=== PATIENT | female | born 1990 | race Caucasian/White ===

== ENCOUNTER 2018-12-19 04:20 | Outpatient (CLI) | payer BC, SELFPAY ==
[2018-12-19] MEDS: Albuterol HFA 18 GM 200 PUFF INH IH (16:07)
[2018-12-19] MEDS: Inhaler, Assist Device 1 EACH MC (16:07)
--- NOTE | 2018-12-21 09:05 | PFT_ITS ---
PULMONARY FUNCTION TEST REPORT DATE OF SERVICE: December 19, 2018 REQUESTING PROVIDER: Dalila Nash N.P. Spirometry shows moderately severe obstructive airways disease with significant bronchodilator response. Lung volumes show no evidence of restriction. The very low ERV may be related to underlying obesity. Diffusion capacity slightly elevated. Airways resistance elevated. IMPRESSION: Moderately severe obstructive airways disease with significant bronchodilator response. This is associated with elevated diffusion capacity and airways resistance. This constellation of findings can be seen in asthma. Clinical correlation therefore recommended. LEONEL/jessi
== END 2018-12-19 04:40 ==
PROVIDERS: PCP Nurse Practitioner; Visit Provider Nurse Practitioner
DX: J45.909 Unspecified asthma, uncomplicated (principal); R06.09 Other forms of dyspnea
CPT/HCPCS: 94060; 94150; 94726; 94729

== ENCOUNTER 2020-03-09 20:15 | Outpatient (REF) | payer BC, SELFPAY ==
[2020-03-09 18:46] LABS: HCT 40.4 % (36.0-46.0); HGB 12.7 g/dL (11.2-15.7); MCH 28.5 pg (27.0-33.0); MCHC 31.4 % (32.0-36.0); MCV 90.8 fL (80-95); MPV 13.7 fL (8.0-11.0); Platelet Count 194 10^3/uL (130-400); RBC 4.45 10^6/uL (3.93-5.22); RDW 12.4 % (11.7-14.6); RDW-SD 41.4 fL; WBC 9.31 10^3/uL (4.4-10.8)
[2020-03-09 19:24] LABS: Calculated LDL 75 mg/dL (<100); Cholesterol 132 mg/dL (<200); Glucose 109 mg/dL (74-106); HDL Cholesterol 48 mg/dL (40-60); TSH (W/Ref FT4) 0.63 uIU/mL (0.36-3.74); Triglyceride 48 mg/dL (<150)
[2020-03-09 19:34] LABS: Vitamin D 25 Total 6.9 ng/ml (30-100)
== END 2020-03-09 20:35 ==
LOC: NCHCN 20:15
PROVIDERS: PCP Nurse Practitioner; Visit Provider Nurse Practitioner
DX: Z12.31 Encounter for screening mammogram for malignant neoplasm of breast (principal); Z13.89 Encounter for screening for other disorder; R53.83 Other fatigue; Z13.1 Encounter for screening for diabetes mellitus
CPT/HCPCS: 80061; 82306; 82947; 85027; 84443

== ENCOUNTER 2022-04-11 12:10 | Outpatient (REF) | payer OTHER, SELFPAY ==
--- NOTE | 2022-04-11 11:30 | PAPFT_PTH ---
PATIENT: Corie Fall LOC: [facility] U#:[id number] AGE/SX: 31/F ROOM: RE04/11/[address]: Afua Valdes NP : 1990 BED: DIS: 04/11/2022 SPEC #: [id number] RECD: 04/11/22 13:08 STATUS: JENNIFER JEONG #: [id number] MIREYA: 04/11/22 11:[address]: Afua Valdes NP DEPT: [facility] Cytology RECD BY: Bettie Johnson ENTERED: 04/11/22 13:08 SP TYPE: PAPFT OTHR DR: Dalila Nash Tissues: 1 - CX/ENDOCX FOR PAP SMEARS Procedures: PAP THIN PREP/UVM Screening HPV DNA PROBE Comments: [id number]
== END 2022-04-11 12:11 | disposition home or self-care (01) ==
LOC: LBN 12:10
PROVIDERS: PCP Nurse Practitioner; Visit Provider Nurse Practitioner Women's Health
DX: Z12.4 Encounter for screening for malignant neoplasm of cervix (principal); Z11.51 Encounter for screening for human papillomavirus (HPV)
CPT/HCPCS: 88142; 87624

== ENCOUNTER 2023-07-11 20:25 | Observation (INO) | payer OTHER, SELFPAY ==
[2023-07-11] VITALS (21 sets, daily range): BP systolic 141; BP diastolic 86; PULSE 77; RESP 16–20; TEMP 36.7; O2SAT 94–100
[2023-07-11] MEDS: Albuterol/Ipratropium 3 ML UPD VIAL (20:36)
--- NOTE | 2023-07-11 20:41 | ED.GENADUL_ITS ---
Discharge Plan Discharge Details Chief Complaint: RespSymp Primary Care Provider: TIFFANIE MARTINS ED Provider: Kourtney Espinosa Home Meds and New Rx's Prescriptions: No Action albuterol sulfate 0.63 MG/3 ML solution for nebulization 3 ml Inhalation PRN PRN Claritin-D 24 Hour 1 EACH tablet extended release 24 hr 1 tab PO PRN PRN montelukast [Singulair] 10 MG tablet 10 mg PO DAILY albuterol sulfate [ProAir HFA] 8.5 GM HFA aerosol inhaler 2 puff Inhalation PRN PRN budesonide-formoterol [Symbicort] 160-4.5 mcg/actuation HFA aerosol inhaler 2 inh inhalation DAILY HPI General Date/Time Provider Initiated Documentation: 07/11/23 20:28 . HPI Narrative: Corie is a 32-year-old female who presents to the emergency department today accompanied by her Nisa for evaluation of viral symptoms with shortness of breath/wheeze. She reports that symptoms started with sneezing 2 nights ago. She has since developed fever, cough, congestion, wheeze, and diarrhea x 1. Today she used her albuterol in the morning and then again in the evening, she says that the morning updraft helped, but she did not have improved symptoms after the second. Chest discomfort only with cough. Denies difficulty swallowing, change in p.o. intake, abdominal pain, change in bladder function, calf redness/swelling/tenderness, history of blood clots, estrogen use. She does have a history of ICU hospitalization with intubation due to asthma, says it has been many years. She has taken prednisone for acute asthma exacerbations in the past. Denies immunocompromise, heart disease, or other chronic illness other than YOVANI and GERD. Related Data Home Medications Medication Instructions Recorded Confirmed albuterol sulfate 0.63 mg/3 mL 3 ml inhalation PRN PRN 10/11/15 07/11/23 solution for nebulization albuterol sulfate 90 mcg/actuation 2 puff inhalation PRN PRN 10/11/15 07/11/23 aerosol inhaler (ProAir HFA) loratadine-pseudoephedrine ER 10 1 tab PO PRN PRN 10/11/15 07/11/23 mg-240 mg tablet,extended [id number] (Claritin-D 24 Hour) montelukast 10 mg tablet 10 mg PO DAILY 10/11/15 07/11/23 (Singulair) budesonide-formoterol HFA 160 2 inh inhalation DAILY 07/11/23 07/11/23 mcg-4.5 mcg/actuation aerosol inhaler (Symbicort) Allergies Allergy/AdvReac Type Severity Reaction Status Date / Time cat dander Allergy Mild Wheezing Verified 07/11/23 20:32 dog dander Allergy Mild Wheezing Verified 07/11/23 20:32 seasonal Allergy Mild Wheezing Uncoded 07/11/23 20:32 General Stated Complaint: RespSymp VIJAY: 4 Review of Systems Narrative: see HPI Exam Const General: cooperative Orientation: alert and awake Resp Effort & Inspection: cough, retractions, no stridor, no tracheal deviation and uses accessory muscles Auscultation: diminished lung sounds Cardio Rate: regular rate Rhythm: regular rhythm Course Vital Signs Vital signs: Vital Signs Temperature 36.7 C 07/11/23 20:27 Pulse 77 07/11/23 20:27 Respiratory Rate 16 07/11/23 20:27 Blood Pressure 141/86 H 07/11/23 20:27 Pulse Oximetry 100 07/11/23 20:27 Temperature 36.7 C 07/11/23 20:27 Temperature Source Oral 07/11/23 20:27 Pulse 77 07/11/23 20:27 Respiratory Rate 16 07/11/23 20:27 Respiratory Effort Short of Breath 07/11/23 20:35 Respiratory Depth Normal 07/11/23 20:35 Blood Pressure 141/86 H 07/11/23 20:27 Blood Pressure Position Sitting 07/11/23 20:27 Pulse Oximetry 100 07/11/23 20:27 Oxygen Delivery Method Room Air 07/11/23 20:27 Oxygen Flow Rate 0 07/11/23 20:27 Pain Level 0 07/11/23 20:27 Medical Decision Making Corie is a 32-year-old female who presents to the emergency department today accompanied by her Nisa for evaluation of viral symptoms with shortness of breath/wheeze. She reports that symptoms started with sneezing 2 nights ago. She has since developed subjective fever, cough, congestion, wheeze, and diarrhea x 1. Today she used her albuterol in the morning and then again in the evening, she says that the morning updraft helped, but she did not have improved symptoms after the second. Chest discomfort only with cough. Denies difficulty swallowing, change in p.o. intake, abdominal pain, change in bladder function, calf redness/swelling/tenderness, history of blood clots, estrogen use. She does have a history of ICU hospitalization with intubation due to asthma, says it has been many years. She has taken prednisone for acute asthma exacerbations in the past. Denies immunocompromise, heart disease, recent surgery/immobility, or other chronic illness other than YOVANI and GERD. Physical exam remarkable for patient in mild respiratory distress with 2-3 word dyspnea. Tight lung sounds throughout, unable to elicit wheezes. Normal heart sounds. Moist mucous membranes. Clear voice. No oropharyngeal erythema or tonsillar hypertrophy/erythema/exudate. DDx includes was not limited to viral illness such as COVID-19 or flu, asthma exacerbation, seasonal allergies, pneumothorax. No red flags concerning for pneumonia at this time due to concurrent viral symptoms. PERC and Wells both negative and evaluation for risk of PE. While in the emergency department patient received DuoNeb with little improvement in symptoms. She does remain dyspneic, with 2-3 word dyspnea. She reports that lack of wheezing is unusual for her, as she usually requires multiple nebulizers due to persistent wheezing and if she does not have wheezing it usually appears after the first neb. 60 mg prednisone given. I independently interpreted the following tests: CBC reassuring. CMP notable for glucose 474 (previously 109 in 2019) and anion gap 13.8. Potassium 3.2. Urine significant for 500 glucose and trace ketones. VBG notable for respiratory alkalosis, pH 7.5 CO2 27. COVID/flu/RSV negative. Chest x-ray unremarkable, no acute infiltrates noted. This was confirmed by fever radiologist. EKG shows normal sinus rhythm, rate 84. No changes consistent with acute ischemia or hypokalemia. 2330: Corie remains short of breath. She was ambulated throughout the department, heart rate increased to 110s, no hypoxia. A second DuoNeb was ordered, though she remains short of breath, no wheezes auscultated even with forced expiration. 2345: Dr. Mcdermott is evaluating patient at this time. Handoff report given to Dr Crockett, overnight attending. Quality:SDOH Health Related Social Needs: No Data to Display PFSH All Active Problems (Updated 04/11/22 @ 11:24 by Afua Valdes NP) Vitamin D deficiency (Acute) BMI 40.0-44.9, adult (Acute) Acid reflux (Chronic) Asthma (Chronic) Medical History (Updated 04/11/22 @ 11:24 by Afua Valdes NP) Eczema Surgical History (Updated 04/11/22 @ 11:24 by Afua Valdes NP) No pertinent past surgical history Family History (Updated 04/11/22 @ 13:20 by Afua Valdes NP) Father Hyperlipidemia Hypertension Maternal Grandfather Cancer bone/jaw Hypertension Maternal Grandmother Hypertension Social History (Updated 04/11/22 @ 11:35 by Afua Valdes NP) Smoking/Tobacco Use Status: Never Smoking risk assessment performed?: Yes Alcohol Intake: never Drug use: Never Household members: spouse and other Details: 1 foster child 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 No improvement with DuoNeb or prednisone 60 mg given in ED. Chest x- ray negative. Labs remarkable for elevated glucose of 474, increased from 109 in 2020. UA shows glucose 500 with trace ketones. VBG reassuring, respiratory alkalosis with CO2 27 with pH 7.5. COVID flu/RSV negative. Oral potassium supplementation given. 1 L IV fluid given. No tachycardia or hypoxia while in the ED. Currently receiving second DuoNeb. Dr. Mcdermott to consult. Last updated by Kourtney Espinosa at 07/11/23 23:38
--- NOTE | 2023-07-11 21:15 | DI.RAD_ITS ---
Exam(s) XR CHEST 2V PA LATERAL EXAM: XR CHEST 2V PA LATERAL CLINICAL HISTORY: SOB, cough TECHNIQUE: 2D digital imaging was performed. Two views. COMPARISON: No exams were available for comparison FINDINGS: HEART: Normal size. Aorta: Not dilated. PULMONARY VASCULATURE: Normal. LUNGS: Suboptimally inflated but clear. PLEURAL SPACE: No pleural effusion or pneumothorax. BONE:Unremarkable for age. Soft tissues: Unremarkable. IMPRESSION: No acute abnormality. DATA REPOSITORY: RADIATION DOSE DELIVERED:
[2023-07-11 21:21] LABS: COVID-19 PCR Negative (Negative); Influenza A PCR Negative (Negative); Influenza B PCR Negative (Negative); RSV PCR Negative (Negative)
[2023-07-11 21:22] LABS: Source Nasopharynx
[2023-07-11] MEDS: predniSONE 20 MG TAB 60 MG PO (22:01)
[2023-07-11 22:04] LABS: Abs Immature Grans 0.03 10^3/uL (0.0-0.06); Absolute Basophil Count 0.03 10^3/uL (0.0-0.2); Absolute Eosinophil Count 0.12 10^3/uL (0.0-0.7); Absolute Lymphocyte Count 0.79 10^3/uL (1.2-3.4); Absolute Monocyte Count 0.69 10^3/uL (0.1-0.8); Absolute Neutrophil Count 3.69 10^3/uL (1.2-6.7); Basophils % 0.6; Eosinophils % 2.2; HCT 41.4 % (36.0-46.0); HGB 13.6 g/dL (11.2-15.7); Immature Grans % 0.6; Lymphocytes % 14.8; MCHC 32.9 % (32.0-36.0); MCV 88 fL (80-95); Monocytes % 12.9; Neutrophils % 68.9; Platelet Count 166 10^3/uL (130-400); RBC 4.69 10^6/uL (3.93-5.22); RDW 12.1 % (11.7-14.6); WBC 5.35 10^3/uL (4.4-10.8)
[2023-07-11 22:16] LABS: Anion Gap 13.8 mmol/L (3-11); BUN 11 mg/dL (7-18); CO2 21.2 mmol/L (21.0-32.0); CREATININE 0.9 mg/dL (0.55-1.02); Chloride 102 mmol/L (98-107); Estimated GFR 86.57 (mL/min/1.73m2); Glucose 474 mg/dL (74-106); Potassium 3.2 mmol/L (3.5-5.1); Sodium 137 mmol/L (136-145)
--- NOTE | 2023-07-11 22:39 | DI.VRAD_ITS ---
PROCEDURE INFORMATION: Exam: XR Chest Exam date and time: 07/11/2023 10:00 PM Age: 32 years old Clinical indication: Cough and shortness of breath; Patient HX: Cough, SOB TECHNIQUE: Imaging protocol: Radiologic exam of the chest. Views: 2 views. COMPARISON: No relevant prior studies available. FINDINGS: Lungs: No pulmonary consolidation is seen. Pleural spaces: No pleural effusion or pneumothorax is demonstrated. Heart/Mediastinum: The heart appears normal in size. Bones/joints: The visualized bony structures appear intact. IMPRESSION: No active disease is seen in the chest. Dictated and Authenticated by: Amado Hope MD. Ordering:AGUEDA Oconnell MD
[2023-07-11 22:44] LABS: Bilirubin Negative (Negative); Blood Negative (Negative); Clarity Clear (Clear); Glucose 500 mg/dL (Negative); Ketones Trace mg/dL (Negative); Leukocyte Esterase Negative (Negative); Nitrite Negative (Negative); Urobilinogen 0.2 mg/dL (Up to 0.2)
--- NOTE | 2023-07-11 22:45 | RT.EKG_ITS ---
APPROVED REPORT Exam: Resting ECG Reason for Exam: hypok Patient Location: E HR:84 bpm ECG Measurements Heart Rate 84 AXIS TN 142 P 13 QRSd 92 QRS 10 QT 386 T -2 QTc 456 Conclusion Sinus rhythm at a rate of 84 without acute ischemic change. There is no old EKG available for compari son.
[2023-07-11 22:46] LABS: BE (Venous) -2 mmol/L (-2-3); HCO3 (Venous) 21 mmol/L (23-28); O2 Sat (Venous) 94 %; TCO2 (Venous) 19 mmol/L (24-29); pCO2 (Venous) 27 mmHg (41-51); pO2 (Venous) 63 mmHg
[2023-07-11] MEDS: Normal Saline 1,000 ML 1000 ML IV (22:47)
[2023-07-11] MEDS: Potassium Bicarbonate/Cit AC 25 MEQ TABLET.EFF 50 MEQ PO (23:12)
[2023-07-11] MEDS: Albuterol/Ipratropium 3 ML UPD VIAL UPD (23:31)
[2023-07-11 23:36] LABS: Troponin I < 50 ng/L (< or =60)
--- NOTE | 2023-07-11 23:59 | W.PM.HP.N ---
Date of service: 07/12/23 Time of Service: 00:00 Assessment and Plan Assessment and plan (1) Asthma: Status: Chronic Assessment and plan: Asthma, precipitatd by URI. Responding well, will continue nebs and steroids. The complicating factor is new onset DM (presumably type 2, in setting of obesity, though I do note very slight ketonuria and small AG). Given new diagnosis, significant level of hyperglycemia; and furthermore likely exacerbating effect of steroids, I think it best to begin expedited treatment in a supervised setting. 1. Asthma: nebs, steroids 2. DM: sliding scale insulin, begin Metformin in AM, consult dietary Full Code History of Present Illness History of Present Illness Chief Complaint: SOB Narrative: 32 female with asthma --1-2 days of runny nose, dry cough, post nasl drip, SOB. Home nebs and inhaler with little effect so came to ER for evaluation. In ER initial evaluation of note for 2-3 word dyspnea, afebrile,diminished breath sounds; white count 5.3; K 3.2; glucose 474 with AG 13.8 and trace urinary ketones; ph 7.50; and negative CXR. Patient given duonebs and 60 Prednisone. States her breathing is feeling more comfortable though not yet normal. I was asked to evaluate for admission. 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 [employer] Sexually active: Yes Do you think of yourself as: lesbian/lee/homosexual Current gender identity: female Do you feel safe at home: Yes Do you feel safe in your relationship?: Yes History History 0 Para Hx # Term Pregnancies Multiple births Hx # Pregnancies Ectopic pregnancies AB induced Hx Number of Living Children AB spontaneous Meds Allergies and Home Medications Allergies Allergy/AdvReac Type Severity Reaction Status Date / Time cat dander Allergy Mild Wheezing Verified 07/11/23 20:32 dog dander Allergy Mild Wheezing Verified 07/11/23 20:32 seasonal Allergy Mild Wheezing Uncoded 07/11/23 20:32 Home Medications Medication Instructions Recorded Confirmed Type albuterol sulfate 0.63 mg/3 mL 3 ml inhalation PRN PRN 10/11/15 07/11/23 History solution for nebulization albuterol sulfate 90 mcg/actuation 2 puff inhalation PRN PRN 10/11/15 07/11/23 History aerosol inhaler (ProAir HFA) loratadine-pseudoephedrine ER 10 1 tab PO PRN PRN 10/11/15 07/11/23 History mg-240 mg tablet,extended [id number] (Claritin-D 24 Hour) montelukast 10 mg tablet 10 mg PO DAILY 10/11/15 07/11/23 History (Singulair) budesonide-formoterol HFA 160 2 inh inhalation DAILY 07/11/23 07/11/23 History mcg-4.5 mcg/actuation aerosol inhaler (Symbicort) Exam Narrative Exam Narrative: 141/86, 77, 36.7, 18, 99% RA. HEENT atraumatic; neck supple; lungs clear; heart RRR; abdomen soft and NT; extremities w/o edema; neuro Ox3, lucid, moves all 4s Results Labs 07/11/23 21:55 07/11/23 21:55 Labs: Laboratory Results - last 24 hr 07/11/23 07/11/23 07/11/23 20:42 21:50 21:55 WBC 5.35 RBC 4.69 Hgb 13.6 Hct 41.4 MCV 88 MCH 29.0 MCHC 32.9 RDW 12.1 Plt Count 166 MPV 13.0 H Immature Gran % 0.6 Neutrophils % 68.9 Lymphocytes % 14.8 Monocytes % 12.9 Eosinophils % 2.2 Basophils % 0.6 Nucleated RBC % 0.0 Absolute Neutrophils 3.69 Absolute Lymphocytes 0.79 L Absolute Monocytes 0.69 Absolute Eosinophils 0.12 Absolute Basophils 0.03 VBG pH VBG pCO2 VBG pO2 VBG HCO3 VBG Total CO2 VBG O2 Saturation VBG Base Excess Sodium 137 Potassium 3.2 L Chloride 102 Carbon Dioxide 21.2 Anion Gap 13.8 H BUN 11 Creatinine 0.9 Est GFR (CKD-EPI 2020) 86.57 Glucose 474 H Calcium 9.0 Troponin I Urine Color Yellow Urine Clarity Clear Urine pH 7.0 Ur Specific [place] 1.020 Urine Protein Negative Urine Ketones Trace H Urine Blood Negative Urine Nitrite Negative Urine Bilirubin Negative Urine Urobilinogen 0.2 Ur Leukocyte Esterase Negative Urine Glucose 500 H COVID-19 Source Nasopharynx SARS-CoV-2 (PCR) Negative Influenza Type A (PCR) Negative Influenza Type B (PCR) Negative RSV (PCR) Negative 07/11/23 22:43 WBC RBC Hgb Hct MCV MCH MCHC RDW Plt Count MPV Immature Gran % Neutrophils % Lymphocytes % Monocytes % Eosinophils % Basophils % Nucleated RBC % Absolute Neutrophils Absolute Lymphocytes Absolute Monocytes Absolute Eosinophils Absolute Basophils VBG pH 7.50 H VBG pCO2 27 L VBG pO2 63 VBG HCO3 21 L VBG Total CO2 19 L VBG O2 Saturation 94 VBG Base Excess -2 Sodium Potassium Chloride Carbon Dioxide Anion Gap BUN Creatinine Est GFR (CKD-EPI 2020) Glucose Calcium Troponin I < 50 Urine Color Urine Clarity Urine pH Ur Specific [place] Urine Protein Urine Ketones Urine Blood Urine Nitrite Urine Bilirubin Urine Urobilinogen Ur Leukocyte Esterase Urine Glucose COVID-19 Source SARS-CoV-2 (PCR) Influenza Type A (PCR) Influenza Type B (PCR) RSV (PCR) Last Vital Signs Temp 36.7 C 07/11/23 20:27 Pulse 77 07/11/23 20:36 Resp 18 07/11/23 20:36 BP 141/86 H 07/11/23 20:27 Pulse Ox 99 07/11/23 20:36 Time Spent Time spent with Patient: 40-54 minutes Time was spent: preparing to see the patient(eg.review tests), obtaining and/or reviewing separately otained hiistory, ordering medications,tests, procedures, referring, communicating with other health lawn care technician and indepentently interpreting results
[2023-07-12] VITALS (13 sets, daily range): BP systolic 126–145; BP diastolic 67–86; PULSE 72–94; RESP 2–18; TEMP 36.7–37.4; O2SAT 93–98
[2023-07-12] MEDS: Insulin REGULAR-Human 100 UNITS/ML UNIT 10 UNITS SC (00:42)
[2023-07-12] MEDS: Insulin Aspart 300 UNITS/3 ML PEN SC ×3 (06:10→11:48)
[2023-07-12] MEDS: Albuterol/Ipratropium 3 ML UPD VIAL UPD (06:10)
[2023-07-12 07:00] LABS: Anion Gap 11.3 mmol/L (3-11); BUN 7 mg/dL (7-18); CO2 23.7 mmol/L (21.0-32.0); CREATININE 0.8 mg/dL (0.55-1.02); Calcium 8.8 mg/dL (8.5-10.1); Chloride 103 mmol/L (98-107); Estimated GFR 99.71 (mL/min/1.73m2); Glucose 332 mg/dL (74-106); Sodium 138 mmol/L (136-145)
[2023-07-12] MEDS: metFORMIN 500 MG TAB PO (07:36)
[2023-07-12] MEDS: predniSONE 20 MG TAB 60 MG PO (07:37)
[2023-07-12] MEDS: Montelukast 10 MG TAB PO (07:44)
--- NOTE | 2023-07-12 09:48 | PDOC.CMIN ---
Date of service: 07/12/23 Care Management Initial Assmt Initial Assessment REASON FOR HOSPITALIZATION:: Asthma, DM PREVIOUS FUNCTIONAL STATUS/SOCIAL/FAMILY SUPPORTS:: Corie lives in [facility] with her Nisa. They bought a house 6 years ago and work within the local community. 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 They are also foster parents and often foster newborns who are born addicted and or have parents who have substance use history. They both met at [employer] and soon after graduation. Nisa has some family local who are supportive and involved and Corie has family in [place] where she is from. Corie is independent at baseline. CURRENT FUNCTIONAL STATUS:: Corie and Nisa were sitting up in bed during the interaction with CM. Nisa described she came in for her asthma and has a new diagnosis of diabetes. They said they had just met with the cabin furnishings installer and will follow up plan to follow up with cabin furnishings installer as needed and will to follow up with Bajlinderluizshe[facility] PCP. Corie says she felt better last night and continues to feel better even now and is eager to discharge home. ADVANCE DIRECTIVES:: KATARZYNA Weaver, Nisa Artis, Luis Fall CODE STATUS:: Full Code INSURANCE COVERAGE / FINANCIAL ISSUES:: CBA PRIMARY CARE PHYSICIAN:: TIFFANIE MARTINS NP PATIENT/FAMILY EDUCATION NEEDS:: Review discharge instructions and limitations, discussion of self care needs including Ask Me Three ANTICIPATED BARRIERS TO DISCHARGE:: None TRANSPORTATION:: Via private vehicle by family PLAN:: Corie will transport home once medically cleared via private vehicle. She will follow up with her PCP and discharge plan of care. CM will continue to follow. PFSH All Active Problems (Updated 07/12/23 @ 12:37 by Tricia Orourke NP) Hyperglycemia, unspecified (Acute) Vitamin D deficiency (Acute) BMI 40.0-44.9, adult (Acute) Acid reflux (Chronic) Asthma (Chronic) Medical History Eczema Surgical History No pertinent past surgical history Family History Father Hyperlipidemia Hypertension Maternal Grandfather Cancer bone/jaw Hypertension Maternal Grandmother Hypertension Social History Smoking/Tobacco Use Status: Never Smoking risk assessment performed?: Yes Alcohol Intake: never Drug use: Never Household members: spouse and other Details: 1 foster child Housing: house 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 [employer] Sexually active: Yes Do you think of yourself as: lesbian/lee/homosexual Current gender identity: female Do you feel safe at home: Yes Do you feel safe in your relationship?: Yes History History 0 Para Hx # Term Pregnancies Multiple births Hx # Pregnancies Ectopic pregnancies AB induced Hx Number of Living Children AB spontaneous SDOH(Care Management) Screening Will the Patient Participate in the Screening?: Yes Do you worry about having a steady place to live?: no In the past 12 months, have you had to go without electric, gas, oil or water in your home?: no Have you or anyone in your house had to go without enough food to eat?: no Has lack of transportation kept you from medical appointments or from doing things needed for daily living?: no Has anyone in your support network made you feel unsafe for any reason?: no
--- NOTE | 2023-07-12 11:45 | W.PM.DS.N ---
Date of service: 07/12/23 Time of Service: 11:45 DS: Diagnosis Discharge Diagnosis (1) Asthma: Status: Chronic Asessment and Plan: No oxygen requirements and improved after receiving steroids in the emergency department. Will continue steroid burst continue home asthma inhalers (2) Hyperglycemia, unspecified: Status: Acute Asessment and Plan: Suspect new onset diabetes mellitus type 2. A1c is pending. Has been started on metformin. Diabetes education weight loss and exercise discussed (3) New onset type 2 diabetes mellitus: Status: Suspected Asessment and Plan: A1c is pending see above will need close outpatient follow-up Discharge Plan Disposition Patient Disposition: Home Condition: Stable Discharge Details Reason For Visit: Asthma, DM Admit Date/Time: 07/12/23 00:13 Admit Provider: Chidi Mcdermott Attending Provider: Chidi Mcdermott Primary Care Provider: TIFFANIE MARTINS Hospital Course Hospital Course: This is an obese female past medical history significant for asthma who presents to the emergency department with asthma exacerbation. Will be treated with steroids. On evaluation noted to be hyperglycemic suspected new onset of diabetes mellitus type 2 it was thought to be prudent to admit her to the medical surgical unit for diabetes education and monitoring in the setting of treatment with steroids. She was not found to be in DKA. Overnight her respiratory status markedly improved. She is stable for discharge to home she will be started on metformin 500 mg daily and will follow-up with her primary care provider for further management and recommendations. Hemoglobin A1c is pending at time of discharge she was discharged to home with no services discharge discussed with Home Meds and New Rx's Prescriptions: New metformin 500 mg tablet 500 mg PO DAILY Qty: 60 0RF (DME) FreeStyle Eric 2 [place] Misc See Rx Instructions .Route Qty: 1 0RF Rx Instructions: As directed (DME) FreeStyle Eric 2 Sensor Kit See Rx Instructions .Route Qty: 1 0RF Rx Instructions: As directed Continued albuterol sulfate 0.63 MG/3 ML solution for nebulization 3 ml Inhalation PRN PRN Claritin-D 24 Hour 1 EACH tablet extended release 24 hr 1 tab PO PRN PRN montelukast [Singulair] 10 MG tablet 10 mg PO DAILY albuterol sulfate [ProAir HFA] 8.5 GM HFA aerosol inhaler 2 puff Inhalation PRN PRN budesonide-formoterol [Symbicort] 160-4.5 mcg/actuation HFA aerosol inhaler 2 inh inhalation DAILY Discharge Instructions Instructions: Type 2 Diabetes in Adults: New Diagnosis (ED), Diabetes and Nutrition (DC), Diabetes and Exercise (DC) Additional Instructions: We anticipate your blood sugars to be elevated while on your oral steroids. Continue metformin daily as prescribed. Check blood sugars before meals and bedtime and keep a record to bring to your follow-up appointment outpatient Resume your respiratory inhalers as previously scheduled and continue steroid burst for 5 days Stand Alone Forms: Nursing Discharge Form Referrals: TIFFANIE MARTINS NP [Primary Care Provider] - 07/25/23 1:30 pm Activity:: Activity as Tolerated Equipment/Supplies:: Blood Glucose Monitor Diet:: Carb Counting Discharge Orders Discharge Orders: Discharge Order (Routine); Ordered 07/12/23 Ordered By: Tricia Orourke Discharge Data Discharge Date/Time-TO BE ENTERED AT DEPARTURE: 07/12/23 14:55 DS: Summary Time Spent with Patient providing and/or coordinating discharge services: Less than 30 minutes Status at Discharge Functional status at discharge: independent ambulation Overall status at discharge: patient is back to baseline Mental Status: mental status grossly normal Speech and Movement: speech and movement normal Mood: congruent mood Affect: normal affect Quality:SDOH Health Related Social Needs: No Data to Display Exam Narrative Exam Narrative: Obese female of stated age no acute distress head is atraumatic oral mucosas moist cardiovascular regular rate and rhythm respirations even and unlabored her breath sounds are clear faint expiratory wheeze the moves all extremities skin is pink warm dry well-perfused Psych Mental Status: mental status grossly normal Speech and Movement: speech and movement normal Mood: congruent mood Affect: normal affect DS: Data Vitals/I&O Vitals and I&O: Vital Signs Temperature 36.7 C 07/12/23 07:26 Temperature Source Tympanic 07/12/23 07:26 Pulse 91 H 07/12/23 07:26 Pulse Rhythm Regular 07/12/23 10:09 Respiratory Rate 18 07/12/23 07:26 Respiratory Effort Normal, Non-Labored 07/12/23 10:09 Respiratory Depth Normal 07/12/23 10:09 Respiratory Pattern Normal 07/12/23 10:09 Blood Pressure 126/81 07/12/23 07:26 Blood Pressure Position Sitting 07/12/23 00:55 Pulse Oximetry 97 07/12/23 07:26 Oxygen Delivery Method Room Air 07/12/23 07:26 Oxygen Flow Rate 0 07/12/23 07:26 Pain Level 0 07/12/23 01:36 Intake & Output 07/11/23 07/11/23 07/12/23 11:59 23:59 11:59 Intake Total 1000 / 1000 180 / 180 Balance 1000 / 1000 180 / 180 Weight 104.326 kg Intake: IV 1000 / 1000 Oral 180 / 180 Other: Comment per pt voided x2 Data Completed and Pending Labs on day of discharge: Labs from last 24 hours 07/12/23 07/12/23 07/11/23 06:20 02:15 22:43 WBC RBC Hgb Hct MCV MCH MCHC RDW Plt Count MPV Immature Gran % Neutrophils % Lymphocytes % Monocytes % Eosinophils % Basophils % Nucleated RBC % Absolute Neutrophils Absolute Lymphocytes Absolute Monocytes Absolute Eosinophils Absolute Basophils VBG pH 7.50 H VBG pCO2 27 L VBG pO2 63 VBG HCO3 21 L VBG Total CO2 19 L VBG O2 Saturation 94 VBG Base Excess -2 Sodium 138 Potassium 4.0 Chloride 103 Carbon Dioxide 23.7 Anion Gap 11.3 H BUN 7 Creatinine 0.8 Est GFR (CKD-EPI 2020) 99.71 Glucose 332 H Calcium 8.8 Troponin I Cancelled < 50 Urine Color Urine Clarity Urine pH Ur Specific [place] Urine Protein Urine Ketones Urine Blood Urine Nitrite Urine Bilirubin Urine Urobilinogen Ur Leukocyte Esterase Urine Glucose COVID-19 Source SARS-CoV-2 (PCR) Influenza Type A (PCR) Influenza Type B (PCR) RSV (PCR) 07/11/23 07/11/23 07/11/23 21:55 21:50 20:42 WBC 5.35 RBC 4.69 Hgb 13.6 Hct 41.4 MCV 88 MCH 29.0 MCHC 32.9 RDW 12.1 Plt Count 166 MPV 13.0 H Immature Gran % 0.6 Neutrophils % 68.9 Lymphocytes % 14.8 Monocytes % 12.9 Eosinophils % 2.2 Basophils % 0.6 Nucleated RBC % 0.0 Absolute Neutrophils 3.69 Absolute Lymphocytes 0.79 L Absolute Monocytes 0.69 Absolute Eosinophils 0.12 Absolute Basophils 0.03 VBG pH VBG pCO2 VBG pO2 VBG HCO3 VBG Total CO2 VBG O2 Saturation VBG Base Excess Sodium 137 Potassium 3.2 L Chloride 102 Carbon Dioxide 21.2 Anion Gap 13.8 H BUN 11 Creatinine 0.9 Est GFR (CKD-EPI 2020) 86.57 Glucose 474 H Calcium 9.0 Troponin I Urine Color Yellow Urine Clarity Clear Urine pH 7.0 Ur Specific [place] 1.020 Urine Protein Negative Urine Ketones Trace H Urine Blood Negative Urine Nitrite Negative Urine Bilirubin Negative Urine Urobilinogen 0.2 Ur Leukocyte Esterase Negative Urine Glucose 500 H COVID-19 Source Nasopharynx SARS-CoV-2 (PCR) Negative Influenza Type A (PCR) Negative Influenza Type B (PCR) Negative RSV (PCR) Negative PFSH All Active Problems (Updated 07/13/23 @ 00:07 by LEVON POWELL) Hyperglycemia, unspecified (Acute) Vitamin D deficiency (Acute) BMI 40.0-44.9, adult (Acute) Acid reflux (Chronic) Asthma (Chronic) Medical History Eczema Surgical History No pertinent past surgical history Family History Father Hyperlipidemia Hypertension Maternal Grandfather Cancer bone/jaw Hypertension Maternal Grandmother Hypertension Social History Smoking/Tobacco Use Status: Never Smoking risk assessment performed?: Yes Alcohol Intake: never Drug use: Never Household members: spouse and other Details: 1 foster child Housing: house 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 [employer] Sexually active: Yes Do you think of yourself as: lesbian/lee/homosexual Current gender identity: female Do you feel safe at home: Yes Do you feel safe in your relationship?: Yes History History 0 Para Hx # Term Pregnancies Multiple births Hx # Pregnancies Ectopic pregnancies AB induced Hx Number of Living Children AB spontaneous Time Spent with Patient Time Spent with Patient: 45-69 minutes Time was spent: preparing to see the patient(eg.review tests), obtaining and/or reviewing separately otained hiistory, ordering medications,tests, procedures, referring, communicating with other health cardiac care nurse, indepentently interpreting results, counseling the patient and care coordination
[2023-07-12 13:49] LABS: Lab Add On Test DONE
--- NOTE | 2023-07-12 14:24 | PDOC.CMDIS ---
Date of service: 07/12/23 LACE Index Scoring Tool Questions: Length of Stay (in days): 1 Was the patient admitted via the E.D.?: Yes E.D. Visits: 0 Answers: Total Score: 4 Risk of Readmission: Low Risk Care Management Discharge Plan Reason for Hospitalization: Asthma, DM Discharge Plan: Corie will return home via private vehicle with Nisa. She will follow up with her PCP and plan for care as prescribed. No new services anticipated at this time. Patient/Family Education Needs: Review discharge instructions and discuss Ask Me [facility] Health Related Social Needs: No Data to Display
--- NOTE | 2023-07-12 14:49 | W.NUTRFU ---
Date of service: 07/12/23 Time of Service: 10:30 Nutrition Note NOTE: received routine consult for diabetes education. Pt sitting up in bed and partner is visiting with her. A1c 10.7 with very high glucose while inpatient. Gave my card for contacting for outpatient support in diabetes education. Gave Corie handout on basics of carb counting - reviewed her goal is ~200g CHO daily and translated this into 13 15gram servings per day, spread consistently over regular meals and snacks. We spent some time reviewing protein and non carb food choices to round out her plate at meals. They had no questions at this time and will follow up with PCP after discharge - has glucometer ordered. Will remain available for diabeted education referral as outpatient Time Spent in Nutritional Counseling and Treatment: 15 minutes
[2023-07-12 15:28] LABS: Hemoglobin A1C 10.7 % (<5.7)
--- NOTE | 2023-07-14 16:41 | DSE_ITS ---
Date of service: 07/14/23 Time of Service: 16:54 DS: Diagnosis Discharge Diagnosis (1) Asthma: Status: Chronic (2) Hyperglycemia, unspecified: Status: Acute (3) New onset type 2 diabetes mellitus: Status: Suspected Discharge Plan Disposition Patient Disposition: Home Condition: Stable Discharge Details Reason For Visit: Asthma, DM Admit Date/Time: 07/12/23 00:13 Admit Provider: Chidi Mcdermott Attending Provider: Chidi Mcdermott Primary Care Provider: TIFFANIE MARTINS Home Meds and New Rx's Prescriptions: New prednisone 20 mg tablet 40 mg PO DAILY 5 Days Qty: 10 0RF metformin 500 mg tablet 500 mg PO DAILY Qty: 60 0RF (DME) FreeStyle Eric 2 [place] Misc See Rx Instructions .Route Qty: 1 0RF Rx Instructions: As directed (DME) FreeStyle Eric 2 Sensor Kit See Rx Instructions .Route Qty: 1 0RF Rx Instructions: As directed Continued albuterol sulfate 0.63 MG/3 ML solution for nebulization 3 ml Inhalation PRN PRN Claritin-D 24 Hour 1 EACH tablet extended release 24 hr 1 tab PO PRN PRN montelukast [Singulair] 10 MG tablet 10 mg PO DAILY albuterol sulfate [ProAir HFA] 8.5 GM HFA aerosol inhaler 2 puff Inhalation PRN PRN budesonide-formoterol [Symbicort] 160-4.5 mcg/actuation HFA aerosol inhaler 2 inh inhalation DAILY Discharge Instructions Instructions: Type 2 Diabetes in Adults: New Diagnosis (ED), Diabetes and Nutrition (DC), Diabetes and Exercise (DC) Additional Instructions: We anticipate your blood sugars to be elevated while on your oral steroids. Continue metformin daily as prescribed. Check blood sugars before meals and bedtime and keep a record to bring to your follow-up appointment outpatient Resume your respiratory inhalers as previously scheduled and continue steroid burst for 5 days Stand Alone Forms: Nursing Discharge Form Referrals: TIFFANIE MARTINS, [employer] [Primary Care Provider] - 07/25/23 1:30 pm Activity:: Activity as Tolerated Equipment/Supplies:: Blood Glucose Monitor Diet:: Carb Counting Discharge Orders Discharge Orders: Discharge Order (Routine); Ordered 07/12/23 Ordered By: Tricia Orourke Discharge Data Discharge Date/Time-TO BE ENTERED AT DEPARTURE: 07/12/23 14:55 DS: Summary Time Spent with Patient providing and/or coordinating discharge services: Less than 30 minutes Status at Discharge Functional status at discharge: independent ambulation Overall status at discharge: patient is back to baseline Mental Status: mental status grossly normal Speech and Movement: speech and movement normal and pressured speech Mood: congruent mood Affect: normal affect Quality:SDOH Health Related Social Needs: No Data to Display Exam Psych Mental Status: mental status grossly normal Speech and Movement: speech and movement normal and pressured speech Mood: congruent mood Affect: normal affect DS: Data Vitals/I&O Vitals and I&O: Vital Signs Temperature 37.4 C 07/12/23 14:40 Temperature Source Tympanic 07/12/23 14:40 Pulse 94 H 07/12/23 14:40 Pulse Rhythm Regular 07/12/23 10:09 Respiratory Rate 16 07/12/23 14:40 Respiratory Effort Normal, Non-Labored 07/12/23 10:09 Respiratory Depth Normal 07/12/23 10:09 Respiratory Pattern Normal 07/12/23 10:09 Blood Pressure 145/67 H 07/12/23 14:40 Blood Pressure Position Sitting 07/12/23 00:55 Pulse Oximetry 95 07/12/23 14:40 Oxygen Delivery Method Room Air 07/12/23 14:40 Oxygen Flow Rate 0 07/12/23 14:40 Pain Level 0 07/12/23 01:36 PFSH All Active Problems (Updated 07/13/23 @ 00:07 by LEVON POWELL) Hyperglycemia, unspecified (Acute) Vitamin D deficiency (Acute) BMI 40.0-44.9, adult (Acute) Acid reflux (Chronic) Asthma (Chronic) Medical History Eczema Surgical History No pertinent past surgical history Family History Father Hyperlipidemia Hypertension Maternal Grandfather Cancer bone/jaw Hypertension Maternal Grandmother Hypertension Social History Smoking/Tobacco Use Status: Never Smoking risk assessment performed?: Yes Alcohol Intake: never Drug use: Never Household members: spouse and other Details: 1 foster child Housing: house 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 [employer] Sexually active: Yes Do you think of yourself as: lesbian/lee/homosexual Current gender identity: female Do you feel safe at home: Yes Do you feel safe in your relationship?: Yes History History 0 Para Hx # Term Pregnancies Multiple births Hx # Pregnancies Ectopic pregnancies AB induced Hx Number of Living Children AB spontaneous Time Spent with Patient Time Spent with Patient: <45 minutes Time was spent: preparing to see the patient(eg.review tests), obtaining and/or reviewing separately otained hiistory, ordering medications,tests, procedures, referring, communicating with other health adult live in caregiver, indepentently interpreting results, counseling the patient and care coordination
== END 2023-07-12 14:55 | disposition home or self-care (01) ==
LOC: ER 07-12 00:49 → MS 07-12 01:21
PROVIDERS: Nurse Practitioner Acute Care; Admitting Provider General Practice; Emergency Provider Nurse Practitioner Family; PCP Nurse Practitioner Family; Visit Provider General Practice
DX: J45.909 Unspecified asthma, uncomplicated (principal); E11.65 Type 2 diabetes mellitus with hyperglycemia; E66.9 Obesity, unspecified; Z68.41 Body mass index [BMI] 40.0-44.9, adult; E55.9 Vitamin D deficiency, unspecified; K21.9 Gastro-esophageal reflux disease without esophagitis; Z79.899 Other long term (current) drug therapy
CPT/HCPCS: 00123; 36415; 36416; 80048; 82805; 82962; 87637; 93005; 94640; 96360; 99285; 71046; 81003; 83036; 84484; 85025; 93010; 99235; J1815; J7512; J7620

== ENCOUNTER 2024-01-24 23:01 | Outpatient (REF) | payer OTHER, SELFPAY ==
[2024-01-24 22:04] LABS: BUN 14 mg/dL (7-18); CREATININE 0.6 mg/dL (0.55-1.02); Chloride 106 mmol/L (98-107); Estimated GFR 120.72 (mL/min/1.73m2); Glucose 135 mg/dL (74-106); Sodium 141 mmol/L (136-145)
--- OUTSIDE RECORDS SUMMARY | 2024-01-24 23:03 | XMS_ITS | Continuity of Care Document ---
Author Organization [place] - [facility], [facility] Address [address] [place] [address] [address] [place] [address] Care Team Providers Care Element Setter Name Role Phone TIFFANIE MARTINS Primary Care Provider [phone] Assessment No assessment recorded. Plan of Treatment Reminders Order Date Submit Date Provider Last Modified By Organization Details Last Modified Time Details Appointments Acute 10 2023 05:31P M Not available Not available Not available Annual Wellness Exam 40 2023 10:00A M Not available Not available Not available Lab BMP, serum or plasma 2023 024 [email or web address] [facility] (Registration ), [address] [place] [address], [id number], 01/24/2024 19:17:05 glucose, fingersti ck, blood 2023 024 [email or web address] [facility], [address] [place] [address], [address], [place], [address], 01/24/2024 19:17:05 Referral None recorded. Procedures None recorded. Surgeries None recorded. Imaging None recorded. Medication Orders None recorded. Patient TargetsNo targets recorded. Patient Instructions Encounter Date Encounter Id Patient Instructions Last Modified By Organization Details Last Modified Time 01/24/2024 [id number] 1. It is unclear the cause of your symptoms at this time. I would like you to continue to monitor the symptoms and schedule a follow-up appointment with your primary care provider. 2. Blood sugar in clinic noted to be 85 which is reassuring 3. Blood draw to check your electrolytes will have results tomorrow. I will communicate them to you at that time. [email or web address] Not available 01/24/2024 19:06:51 Reason for Referral None Reported. Results Created Date Observation Date Name Description Value Unit Range Abnormal Flag Note LastModifiedBy Organization Detail LastModifiedTime 01/24/20 24 01/24/2024 gluco se, sanjuanita rstic k, blood glucose 85 mg/dL 70-100 Not Available [address], [place], [address], 01/24/2024 19:11:11 Result Notes None recorded. Problems Name Problem SNOMED Code Status Onset Date Resolution Date Notes Provider Name and Address Organization Details Recorded Time Mild intermit tent asthma 228858201 Active 2015 LINDA hannon, [facility], [facility] 4 09:04:29 Low back pain 715880979 Completed 201507/25/2023 Problem Code: M54.5; Problem Code Type: ICD-10; TIFFANIE MARTINS, [facility] [address], [place], [address] , [facility] 4 16:54:45 Gastroes ophageal reflux disease without esophagi tis 287199761 Active 2015 LINDA hannon, [facility] 4 09:04:21 Otitis media 14631420 Completed 201510/13/2015 09/18/19 16 - Comments only - Maren Gan MD - right tympanic membrane is dull and erythema tous, although it is not bulging. I have opted to treat with amoxicil chiquita. I think she should also see the dentist, as there is a possibil ity that her pain is coming from her broken tooth, and that her tympanic membrane findings are chronic. Problem Code: H66.90; Problem Code Type: ICD-10; Not Available [facility] 3 05:08:07 Neck pain 72045392 Completed 201504/15/2016 04/01/20 16 - Comments only - Candelario Wong PAZoëC - PX findings unsuppor tive of OM, TMJ syndrome , cervical strain, lymphade nitis. After some discussi on, we have opted to treat empirica lly with AUGMENTI N 875-125m g BID x 7d, which would cover for less obvious dental abscess and/or recurren t pharyngi tis. Addition ally, for symptoma tic relief, Corie was treated in office today with TORADOL injectio n. F/U PRN if sxs fail to improve, as we would otherwis e expect, over the course of this upcoming weekend. 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 Problem Code: Z71.89; Problem Code Type: ICD-10; Not Available [facility] 3 05:08:08 Screenin g for malignan t neoplasm of cervix Completed 202104/13/2022 Problem Code: Z12.4; Problem Code Type: ICD-10; Not Available [facility] 3 05:08:08 Cough 10016833 Completed 201706/08/2017 Problem Code: R05; Problem Code Type: ICD-10; Not Available [facility] 3 05:08:09 Uncompli cated asthma 761842148 Completed 201502/01/2023 09/18/19 16 - Comments only - Maren Gan MD - She feels that this is adequate ly treated at this time, with just the Rosa r. She has follow-u p in early October with her primary care provider . If she does not have adequate control, inhaled steroid could be added. Problem Code: J45.909; Problem Code Type: ICD-10; Not Available [facility] 3 05:08:09 Fatigue 83763805 Completed 201803/22/2021 Problem Code: R53.83; Problem Code Type: ICD-10; Not Available [facility] 3 05:08:09 Streptoc occal sore throat 18649093 Completed 202103/30/2022 Problem Code: J02.0; Problem Code Type: ICD-10; Not Available [facility] 3 05:08:09 Acute pharyngi tis 319686312 Completed 202103/30/2022 Problem Code: J02.9; Problem Code Type: ICD-10; Not Available [facility] 3 05:08:09 Diabetes mellitus screenin g Completed 201903/22/2021 Problem Code: Z13.1; Problem Code Type: ICD-10; Not Available [facility] 3 05:08:09 Adult health examinat ion Completed 201812/10/2018 Problem Code: Z00.00; Problem Code Type: ICD-10; Not Available [facility] 3 05:08:10 Acute upper respirat ory infectio n 65487419 Completed 201812/10/2018 Problem Code: J06.9; Problem Code Type: ICD-10; Not Available [facility] 3 05:08:10 Malnutri tion screenin g Completed 201903/22/2021 Problem Code: Z13.21; Problem Code Type: ICD-10; Not Available [facility] 3 05:08:10 Obesity 436518312 Completed 201512/10/2018 Problem Code: E66.9; Problem Code Type: ICD-10; Not Available [facility] 3 05:08:10 Adult health examinat ion Completed 201712/10/2018 Problem Code: Z00.00; Problem Code Type: ICD-10; Not Available [facility] 3 05:08:10 Jaw pain 511312092 Completed 201501/02/2017 Problem Code: R68.84; Problem Code Type: ICD-10; Not Available [facility] 3 05:08:10 Screenin g for disorder Completed 201903/22/2021 Problem Code: Z13.89; Problem Code Type: ICD-10; Not Available [facility] 3 05:08:10 At increase d risk of apnea 506843364 Active 2023 LINDA hannon [facility] 4 09:03:22 Type 2 diabetes mellitus without complica tion 619916375 Active 2023 KORINA WICK [address], [facility] [address] , [facility] 4 16:54:47 Neuropat hy 018569340 Active [address], [facility] [address] , [facility] 4 18:54:28 Problem Notes None recorded. Medical Equipment None Reported. Allergies Allergen ID Allergen Name Allergen Category Reaction Reaction Severity Criticality Documentation Date Start Date Code Code System Note Provider Name and Address Organization Details Recorded Time 49225 Canis lupus familiari s extract environme nt Not available Not available Not available 03/17/20232022 02665 4 RxNorm Aller gyNam e: 'DOGS '; Not Available [facility] 16:21:56 Medications Name Sig Start Date Stop Date Status Note LastModified by Organization Details LastModified Time Prescript ion - Renewal active ALBUTERO L HFA INH (200 PUFFS) 8.5GM Not Available Not Available Not Available Singulair 10 mg tablet Take 1 tablet by mouth every night 2021 active Not Available Not Available Not Avai lable amoxicill in 500 mg capsule Take 1 cap by mouth three times daily 09/27 completed Not Available Not Available Not Available metformin 500 mg tablet Take 1 tablet every day by oral route. active Not Available Not Available No t Available Augmentin 875 mg-125 mg tablet Take 1 tab by mouth twice daily. 04/08 completed Not Available Not Available Not Available albuterol sulfate 2.5 mg/3 mL (0.083 %) solution for nebulizat ion Inhale 1 ampul using nebulize r every four to six hours as needed 2020 active Not Available Not Available Not Avai lable ibuprofen 200 mg capsule Take 1 tab by mouth three times daily as needed 2015 active otc Not Available Not Available Not Avai lable penicilli n V potassium 500 mg tablet Take 1 tablet by mouth three times a day 09/09 completed Not Available Not Available Not Available Aerochamb er MV spacer use with inhaler 07/06 completed Not Available Not Available Not Available Advair Diskus 250 mcg-50 mcg/dose powder for inhalatio n Inhale 1 puff by mouth twice daily 09/01 completed Not Available Not Available Not Available albuterol sulfate HFA 90 mcg/actua tion aerosol inhaler INHALE 1 TO 2 PUFFS BY MOUTH EVERY 4 TO 6 HOURS NEEDED 2021 active Not Available Not Available Not Avai lable Vitamin D2 1,250 mcg (50,000 unit) capsule Take one capsule by mouth weekly for 8 weeks 05/07 completed Not Available Not Available Not Available metformin ER 500 mg tablet,ex tended release 24 hr Take 2 tablets twice a day by oral route as directed for 90 days. 2023 active patient is now taking 4 daily-10 00mg Not Available Not Available Not Available loratadin e 10 mg tablet Take 1 tablet by mouth once a day for seasonal allergie s. 2022 active Not Available Not Available Not Avai lable Symbicort 80 mcg-4.5 mcg/actua tion HFA aerosol inhaler 1 inhalati on by mouth twice daily 09/17 completed Not Available Not Available Not Available budesonid e-formote rol HFA 160 mcg-4.5 mcg/actua tion aerosol inhaler INHALE 2 PUFFS BY MOUTH TWICE A DAY 2023 active Not Available Not Available Not Avai lable Claritin Liqui-Gel 10 mg capsule 2015 active otc Not Available Not Available Not Avai lable FreeStyle Eric 2 Sensor kit USE DIRECTED TO MONITOR BLOOD SUGAR active Not Available Not Available No t Available Vitals Date Recorded Body height Body mass index (BMI) Body weight Body temperature Oxygen saturation Oxygen saturation in Arterial blood by Pulse oximetry Heart rate Respiratory rate Systolic blood pressure Diastolic blood pressure Provider Name and Address Organization Details Last Updated DateTime 4 159 cm 37.7 kg/m2 74592.4 g 97 [degF] 97 % 97 % 71 /min 18 /min 131 mm[Hg] 81 mm[Hg] NIURKA PENA MA [facility] 4 18:03:42 Social History Question Answer Notes LastModified by Organizat ion Details LastModified Time Tobacco Smoking Status Never Smoker ANNIA Avila, [facility] 07/25/2023 13:35:06 What Was The Date Of Your Most Recent Tobacco Screening? 07/25/2023 [email or web address] Information not available 07/25/2023 Has Tobacco Cessation Counseling Been Provided? No [email or web address] Information not available 07/25/2023 Do You Or Have You Ever Used Any Other Forms Of Tobacco Or Nicotine? No [email or web address] Information not available 07/25/2023 Sex: Female Functional Status None recorded. Mental Status None recorded. Family History Relationship Description Onset Age of this Age Resolved Age Notes LastModified by Organization Details LastModified Time Sister Family history of Depression Relati ve: 'Half Sister '; Not available 03/17/2023 03:57:37 Sister Family history of Depression Not available 03/17 03:57:37 Sister Family history of Anxiety state Relati ve: 'Half Sister '; Not available 03/17/2023 03:57:37 Sister Family history of Anxiety state Not available 2022 03:57:37 Brother Family history of Anxiety state Relati ve: 'Half Brothe r'; Not available 03/17/2023 03:57:37 Father No family history of respiratory disease linpui. Not available 2022 03:57:37 Mother Family history of disorder of lung linpui. Not available 2022 03:57:37 Notes:*Problem: mom - asthma , dad - copd , smoker mgf - cancer in jaw 2 half - 1 brother, 1 sister - depression, anxiety Medical History No medical history recorded. Gynecological HistoryNo gynecological history recorded. Obstetrics History GPAL:G 0 P 0 0 0 0 Immunizations Vaccine Type Date Status Provider Name and Address Organization Details Recorded Time MMR 06/22/1994 completed Not Available [facility] 04:53:05 MMR 09/21/1990 completed Not Available [facility] 04:53:05 Td (adult), 2 Lf tetanus toxoid, preservative free, adsorbed 01/02/2017 completed Not Available [facility] 03/17/2023 04:53:06 meningococcal ACWY, unspecified formulation 02/09/2007 completed Not Available [facility] 03/17/2023 04:53:06 Tdap 02/09/2007 completed Not Available [facility] 04:53:06 HPV, unspecified formulation 05/22/2008 completed Not Available [facility] 03/17/2023 04:53:06 HPV, unspecified formulation 03/01/2007 completed Not Available [facility] 03/17/2023 04:53:06 HPV, unspecified formulation 04/26/2007 completed Not Available [facility] 03/17/2023 04:53:06 COVID-19, mRNA, LNP-S, PF, 30 mcg/0.3 mL dose 07/28/2021 completed Not Available [facility] 03/17/2023 04:53:07 COVID-19, mRNA, LNP-S, PF, 30 mcg/0.3 mL dose 01/04/2021 completed Not Available [facility] 03/17/2023 04:53:07 COVID-19, mRNA, LNP-S, PF, 30 mcg/0.3 mL dose 01/25/2021 completed Not Available [facility] 03/17/2023 04:53:07 Hep B, unspecified formulation 06/17/1997 completed Not Available [facility] 03/17/2023 04:53:08 Hep B, unspecified formulation 06/22/1994 completed Not Available [facility] 03/17/2023 04:53:08 Hep B, unspecified formulation 02/27/1996 completed Not Available [facility] 03/17/2023 04:53:08 polio, unspecified formulation 05/22/1990 completed Not Available [facility] 03/17/2023 04:53:08 polio, unspecified formulation 07/09/1991 completed Not Available [facility] 03/17/2023 04:53:08 polio, unspecified formulation 08/09/1990 completed Not Available [facility] 03/17/2023 04:53:08 polio, unspecified formulation 10/17/1997 completed Not Available [facility] 03/17/2023 04:53:09 polio, unspecified formulation 1989 completed Not Available [facility] 03/17/2023 04:53:09 Past Encounters Encounter ID Performer Location Encounter Start Date Encounter Closed Date Diagnosis/Indication Diagnosis SNOMED-CT Code Diagnosis ICD10 Code [id number] JOON CURRAN PA-C [address] [address] 01/24/2024 17:32:29 01/24/2024 19:17:56 Neuropathy [id number] G62.9 Health Concerns Section Related Observation LastModified by Organization Detai ls LastModified Time None Recorded Concern Status LastModified by Organization Details LastModified Time None Recorded Payers Encounter Date Sequence Insurance Name Policy Number Policy Segundo Covered Member ID Segundo Member ID Guarantor Name 01/24/2024 1 [facility]: CBA [id number] ([place] ONLY PPO) Corie Fall [id number] Corie Fall Notes Date Note Type Note Provider Name and Address Organization Details Recorded Time 01/24/2024 text/html HPI Notes: Nanette biswas is a 33-year-old female who presents with numbness sensation beginning in her left foot about 3 weeks ago and has spread up the left leg over about a week's time and then to the right foot and up the right leg. She reports that she was diagnosed with diabetes and August and is concerned this could be complication of that. She did have a continuous glucose monitor which recently fell out. She notes that before all of this began she had a very mild upper respiratory infection which did not even require use of her inhaler. She states while she was sick her blood sugars were high as 170. Since she has been well it ranges between 100-1 30. Has not checked it in 2 days. She now feels the sensation primarily on the anterior aspect of both thighs. Denies at any point she has had numbness sensation on the back of the legs. She has been able to ambulate without difficulty. She has no back pain. She does not have numbness or tingling in the upper extremities but does endorse that she feels like it is headed toward the groin and the lower abdomen JOON CURRAN PA-C [address], [place], [address], [facility]. 01/24/2024 20:18:45 OBGyn Episode No OBEpisode recorded.
--- OUTSIDE RECORDS SUMMARY | 2024-01-24 23:03 | XMS_ITS | Data Portability ---
Author Organization [facility] [place] [address] Care Team Providers Care Health Services Coordinator Name Role Phone TIFFANIE COWART Primary Care Provider Assessment Encounter Date Assessment Date Assessment LastModified by Organization Details LastModified Time 08/29/2023 08/29/2023 CC: Diabetes Management Risk Factors: Exercise Counseling: Y Dietary Counseling: Y Nutrition DATE OF SERVICE: 08/29/23 SUBJECTIVE: Patient/guardian has consented to an office visit being done by telephone rather than in the office due to the COVID-19 pandemic. Patient/guardian was told that this visit will be billed as any other in office visit and is subject to the usual co-pay and other costs associated with visit. A verbal consent to this effect was given for today? s visit. 33 year old with type 2 diabetes diagnosed 07/25/23 during hospitalization A1c 10.7%. Also Obesity BMI 38.8, and GERD. Referred by pcp Tiffanie Cowart . Here today for: Initial MNT and Diabetes education. Previously met with patient as a warm handoff on 07/25/23 after hospital Discharge to discuss diet, lifestyle, and cgm report. Diet History: Since dx with diabetes cut out soda completely, has water instead. snack at work: cheese and pepperoni and trail mix for snack B ? eggs scrambled with cheese or broccoli or mushrooms, 1 slice whole wheat toast. used to do belarusian toast once per week. L - struggles with lunches usually a sandwich. Take out from stores [employer] and [employer] or [employer] or [employer]. Hospital meal [facility] festival event. OBJECTIVE: Relevant labs: HbA1C: 10.7% 07/12/2023 Current Patient Reported Diabetes Medications: 2000mg metformin Glucose Monitoring: Glucometer Type: CGM Type: Freestyle eric 2. hospital ordered FSL2 now unable to get FSL3 due to cost. Should have gotten FSL3. $75/month for sensors. Libreview CGM Report PROGRESS 07/25/23-->08/29/23 Average Glucose: 206mg/dL--> 125mg/dLmg/dL Very High: 29% --> 0% High: 19% --> 2% Time in Range: 52% --> 98 % Low: 0% --> 0 % Very low: % --> 0% GMI: 8.2%--> 6.3% Detailed discussion/explana tion re: ADCES7: 1. Healthy Coping 2. Healthy Eating 3. Being Active 4. Taking Medication 5. Monitoring 6. Problem Solving 7. Reducing Risks https://www.diabet eseducator.org/prince ppm-vkme-zmqtflsf/ pcbf5-hwyp-arnr-be haviors Oral Care: cleanings every 6 months. Eye Care: went last year goes every other year, reviewed importance of yearly eye care. Foot Care: reviewed Physical Activity: has treadmill: tries to get on at least every other day. sometimes bikes to work E bike. Plans to use it more. Encouraged getting 150min/week 30 min most days. 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 Currently at [facility] at [facility] Handouts provided: hypoglycemia, planning healthy meals, class and support group information. Assessment: Altered nutrition-related labs (A1C) related to poor glycemic control as evidenced by an elevated hemoglobin A1C level of 10.7%, indicating suboptimal diabetes management. Monitoring/Evaluat ion: 11/28/23 follow up MNT with Kortney tam. Keep up the great work. Wonderful job. Signature: Kortney Tolbert RDN, LD, [facility] VISIT STATISTICS: Total Visit Minutes-90 [email or web address] Not available 10/24/2023 09:47:17 11/28/2023 11/28/2023 CC: Diabetes Management Risk Factors: Exercise Counseling: Y Dietary Counseling: Y Nutrition DATE OF SERVICE: 11/28/23 SUBJECTIVE: 33 year old with type 2 diabetes newly diagnosed 07/25/23 during hospitalization A1c 10.7%. Also Obesity BMI 37.8, and GERD. Referred by pcp Tiffanie Cowart. Here today for: follow up MNT and diabetes education. 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 Diet History: hearty whole wheat bread. makes bread half whole wheat and half white flour bread. Since dx with diabetes cut out soda completely, has water instead. has been consistent with this. herbal teas. no sugar added drinks ICE, seltzer. snack at work: cheese and pepperoni and trail mix for snack B ? eggs scrambled with cheese or broccoli or mushrooms, 1 slice whole wheat toast. used to do belarusian toast once per week. sometimes [employer] whole wheat bagel. tried a cereal whole wheat but did not like it. whole wheat waffles. L - struggles with lunches usually a sandwich. Take out from stores [employer] and [facility] [employer] or [employer] or [employer]. More salads leftovers. Hospital meal [employer] festival event. broccoli, cauliflower, take out bread SF BBQ sauce SF pudding watching portions. Pasta did not finish mac and cheese paired with broccoli or salad. quinoa in different recipes chickpeas or hummus discussed making healthier pancakes and healthy sauces. veggies in hummus veggies in a homemade dip goes to veggie van go fruits: cherries, strawberries, watermelon in portions, talked about pyrex dishes. recommended mobley pasta added veggies pesto, red sauce pomi vegetables. OBJECTIVE : Relevant labs: HbA1C : 10.7% 07/12/2023 CGM report 90 day Glucose Management Indicator 6.3% Current Patient Reported Diabetes Medications: 2000mg metformin Glucose Monitoring: CGM Type : Freestyle eric 2. hospital ordered FSL2 now unable to get FSL3 due to cost. Should have gotten FSL3. $75/month for sensors. CGM Training: July 2023 discussed success over time, congratulated her on success, consider to save money wear cgm intermittently and possibly spend money on something for physical activity. Nathan CGM Report PROGRESS 07/25/23-->08/29/23- ->11/28/23 Average Glucose: 206mg/dL--> 125mg/dLmg/dL --> 126 Very High: 29% --> 0% --> 0% High: 19% --> 2% --> --> 3% Time in Range: 52% --> 98 % --> 97% Low: 0% --> 0 % --> 0 Very low: % --> 0% --> 0 GMI: 8.2%--> 6.3%--> --> 6.3% Detailed discussion/explana tion re: ADCES7: 1. Healthy Coping 2. Healthy Eating 3. Being Active 4. Taking Medication 5. Monitoring 6. Problem Solving 7. Reducing Risks https://www.diabet eseducator.org/prince ypf-dgwi-hpwnmvqv/ lpic5-jfcm-ueua-be haviors Oral Care: cleanings every 6 months. Eye Care: went last year goes every other year, reviewed importance of yearly eye care. Foot Care: reviewed Physical Activity: has treadmill: tries to get on at least every other day. sometimes bikes to work E bike. Plans to use it more. Encouraged getting 150min/week 30 min most days. 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 3 months old Weight loss : she has lost weight since working on healthier eating, portions, has been walking more asthma improved, not as out of breath. Physical Activity : struggling with 150 min/week goal. Discussed considering free options: community classes, [employer] videos, [employer] yina or something like that for walkingat a faster pace certain times at work, yoga at home, College in [facility] exercise program for people with chronic conditions, consider physical therapy for improving lean body mass. Discussed lean body mass and how to improve it how it also helps with protecting body against complications of diabetes. Handouts provided : hypoglycemia, planning healthy meals, class and support group information. Assessment : Overweight related to physical inactivity and previous excessive energy intake as evidenced by BMI 37.8. Eating habits have improve drastically, is seeing weight loss. Expect to see A1c around 6.3% based on CGM report. Congratulated on all progress and overall success. Monitoring/Evaluat ion: 3 month follow up MNT with Kortney virtually or in person, I will have Margaret call to schedule to keep our momentum going and to assist with weight management. Keep up the great work. Wonderful job. Signature: Kortney Tolbert RDN, LD, [facility] VISIT STATISTICS: Total Visit Minutes-60 [email or web address] Not available 11/28/2023 11:59:59 Plan of Treatment Reminders Order Date Submit Date Provider Last Modified By Organization Details Last Modified Time Details Appointments Acute 10 2023 05:31P M Not available Not available Not available Annual Wellness Exam 40 2023 10:00A M Not available Not available Not available Lab BMP, serum or plasma 2023 024 [email or web address] [facility] (Registration ), [address] [place] [address], [place], [address], 01/24/2024 19:17:05 glucose, fingersti ck, blood [email or web address] [facility], [address] [place] [address], [address], [place], [address], 01/24/2024 19:17:05 Referral None recorded. Procedures None recorded. Surgeries None recorded. Imaging None recorded. Medication Orders metformin ER 500 mg tablet,ex tended release 24 hr 2023 024 [email or web address] [facility], [address] [place], [address], 08/22/2023 10:23:14 Patient Targets Encounter Date Encounter Id Patient Goals Patient Target Last Modified By Organization Details Last Modified Time - I will Continue to work on my diet, healthier eating, more fiber, mindful eating, less sugar, less saturated fat.- I will focus on getting more exercise outside working towards goals of 150mins/week - I will work more on prepping meals and snacks for grab and go times- I will work on Adding other healthy items back in like vegetables. Try having vegetable at meals and maybe add hummus.- I will be mindful of portion sizes and try to decrease portions - consider making fruit sauce for belarusian toast [email or web address] Not available 10/24/2023 09:42:46 - I will Continue to work on my diet, healthier eating, more fiber, mindful eating, less sugar, less saturated fat.- I will focus on getting more exercise outside working towards goals of 150mins/week - I will work more on prepping meals and snacks for grab and go times- I will work on Adding other healthy items back in like vegetables. Try having vegetable at meals and maybe add hummus.- I will be mindful of portion sizes and try to decrease portions - consider making fruit sauce for belarusian toast [email or web address] Not available 11/28/2023 10:38:37 Patient Instructions Encounter Date Encounter Id Patient Instructions Last Modified By Organization Details Last Modified Time 07/25/2023 [id number] type 2 diabetes: care instructions [email or web address] Not available 07/25/2023 14:19:26 1 month follow up. METFORMIN refilled - 500 mg ER - GOAL - 2,000 mg daily is the custodial goal. Start with one a day, then advance to twice daily; then add a second tab to your morning dose, etc... Please call with questions. [email or web address] Not available 07/25/2023 14:22:39 08/22/2023 [id number] 1 month follow up. METFORMIN refilled - 500 mg ER - GOAL - 2,000 mg daily is the long term care administrator goal. Start with one a day, then advance to twice daily; then add a second tab to your morning dose, etc... Please call with questions. [email or web address] Not available 08/22/2023 10:27:15 08/29/2023 [id number] Keep up the grea t work with the CGM success. You are doing a wonderful job with Time in Range (TIR). Keep trying to get the physical activity in and build the lean body mass as you loose weight. CGM Customer Support and Replacement information: {{Dexcom - I will call Dexcom if I have a question/malfunctio n/error message/if sensor does not last the full 10 days. - I will keep the sensor and applicator until the end of my 10 day wear. - Product troubleshooting or replacement inquiries: Available 24 hours a day; 7 days a week OR -Request a call back from a product support agent. The queue is open 28/11: [email or web address] Greg falconkasie [employer] -I will contact Abbot if I have a question/malfunctio n/error message/if sensor does not last the full 14 days. - I will keep the sensor and applicator until the end of my 14-day wear. [phone] Available 7 days a week 8 AM to 8 PM Eastern Time; excluding holidays. OR - Submit a sensor support request if your sensor has fallen off or if you have received a sensor error message. https://www.[employer] Chosen.fm/us-en/sup port/contact-us.htm l.*}} -Your pharmacy or DME company will not replace sensors, only the farm mortgage agent will. - I will use the data from the CGM to work with my diabetes care team to adjust diet, lifestyle, and diabetes medications to continue achieving 70% time in range (TIR). - Our Diabetes Care Team is here to support you as well, ask your Nurse Search Developer for more information or call/text Kortney Tolbert during normal business hours - 9-5pm [phone]. [email or web address] Not available 10/24/2023 09:44:54 11/28/2023 [id number] [email or web address] Keep up the great work with the CGM success. You are doing a wonderful job with Time in Range (TIR). You are protecting your pancreas and preventing complications with all of the work you are doing related to improving overall health. Keep trying to get the physical activity in and build the lean body mass as you loose weight. Consider the [employer] yina to help you walk a little faster certain times at work. Consider exercise program at college in the fall with students consider physical therapy to help with improving muscle mass, weight loss Consider community exercise programs -6 minute miracle morning to help with healthy lifestyle change -make own sauces, popcicles, desserts to avoid ultra processed sugar free foods with added ingredients -read food labels mindful intuitive eating looking at sodium, sat fat, added sugar, and carbohydrate contents. -consider mobley pastas and adding lots of veggies to the sauce - consider grab and go fruits like watermelon in individual pyrex dishes or simin jars -consider adding ground nuts, flax seeds, hemp seeds, fruit, sweet potato to pancake/waffles -call insurance company to see if they have any free resources related to your goals or MEdical nutrition therapy visit limits. CGM Customer Support and Replacement information: {{Dexcom - I will call PredictSpring if I have a question/malfunctio n/error message/if sensor does not last the full 10 days. - I will keep the sensor and applicator until the end of my 10 day wear. - Product troubleshooting or replacement inquiries: Available 24 hours a day; 7 days a week OR -Request a call back from a product support agent. The queue is open 28/11: [email or web address] Greg falconkasie [employer] -I will contact if I have a question/malfunctio n/error message/if sensor does not last the full 14 days. - I will keep the sensor and applicator until the end of my 14-day wear. [phone] Available 7 days a week 8 AM to 8 PM Eastern Time; excluding holidays. OR - Submit a sensor support request if your sensor has fallen off or if you have received a sensor error message. https://www.[employer] ping.rodas/us-en/sup port/contact-us.htm l.*}} -Your pharmacy or DME company will not replace sensors, only the farm mortgage agent will. - I will use the data from the CGM to work with my diabetes care team to adjust diet, lifestyle, and diabetes medications to continue achieving 70% time in range (TIR). - Our Diabetes Care Team is here to support you as well, ask your Nurse Search Developer for more information or call/text Kortney Tolbert during normal business hours M-Th 9-5pm [phone]. [email or web address] Not available 11/28/2023 12:00:36 01/24/2024 [id number] 1. It is unclear the cause of [...] Abnormal Flag Note LastModifiedBy Organization Detail LastModifiedTime 07/11/19 24 07/11/2023 COVID /FLU/ RSV PCR source Jose engel Not Available [facility] [address], [place], [address] 07/11/2023 21:25:44 07/11/19 24 07/11/2023 COVID /FLU/ RSV PCR covid-19 PCR Negati ve negati ve This test has not been FDA clear ed or appro chevy. This test has been autho rized by the FDA under an Emerg ency Use Autho rizat ion for use by autho rized labor atori es. This test has been autho rized only for detec tion of nucle ic acid from the 2019 novel coron a virus (2018nCoV ), influ sowmya A, influ sowmya B, and respi rator y syncy tial virus (RSV) , and not for the detec tion of any other virus es or patho gens. This test is only autho rized for the durat ion of the decla ratio n that circu mstan subha exist justi fying the autho rizat ion of emerg ency use of in vitro diagn ostic tests for detec tion and/o r diagn osis of 2019- nCoV under secti on 564(b )(1) of Act, 21 U.S.C ??? 360bb b-3(b )(1), unles s the autho rizat ion is termi nated or revok ed soone r. Negat omayra resul ts do not precl ude 2019- nCoV, influ sowmya, and/o r RSV infec tion and shoul d not be used as the sole basis for treat ment or other patie nt manag ement decis ions. Negat omayra resul ts must be combi emmett with clini lidya obser vatio ns, patie nt histo ry, and epide miolo gical infor matio n. Testi ng perfo rmed at [facility] (CLIA #[id number]) on the [employer] id Gene[employer] pert. Not Available [address] [place], [address] 07/11/2023 21:25:44 07/11/19 24 07/11/2023 COVID /FLU/ RSV PCR influenza A PCR Negati ve negati ve Not Available [address] [place], [address] 07/11/2023 21:25:44 07/11/19 24 07/11/2023 COVID /FLU/ RSV PCR influenza B PCR Negati ve negati ve Not Available [address] [place], [address] 07/11/2023 21:25:44 07/11/19 24 07/11/2023 COVID /FLU/ RSV PCR RSV PCR Negati ve negati ve Not Available [address] [place], [address] 07/11/2023 21:25:44 07/11/19 24 07/11/2023 COMPL ETE BLOOD COUNT W/DIF F WBC 5.35 10_3/ uL 4.4-10 .8 normal Not Available [address] [place], [address] 07/11/2023 22:09:52 07/11/19 24 07/11/2023 COMPL ETE BLOOD COUNT W/DIF F RBC 4.69 10_6/ uL 3.93-5 .22 normal Not Available [address] [place], [address] 07/11/2023 22:09:52 07/11/19 24 07/11/2023 COMPL ETE BLOOD COUNT W/DIF F HGB 13.6 g/dL 11.2-1 5.7 normal Not Available [address] [place], [address] 07/11/2023 22:09:52 07/11/19 24 07/11/2023 COMPL ETE BLOOD COUNT W/DIF F HCT 41.4 % 36.0-4 6.0 normal Not Available [address] [place], [address] 07/11/2023 22:09:52 07/11/19 24 07/11/2023 COMPL ETE BLOOD COUNT W/DIF F MCV 88 fL 80-95 normal Not Available [address] [place], [address] 07/11/2023 22:09:52 07/11/19 24 07/11/2023 COMPL ETE BLOOD COUNT W/DIF F MCH 29.0 pg 27.0-3 3.0 normal Not Available [address] [place], [address] 07/11/2023 22:09:52 07/11/19 24 07/11/2023 COMPL ETE BLOOD COUNT W/DIF F MCHC 32.9 % 32.0-3 6.0 normal Not Available [address] [place], [address] 07/11/2023 22:09:52 07/11/19 24 07/11/2023 COMPL ETE BLOOD COUNT W/DIF F RDW 12.1 % 11.7-1 4.6 normal Not Available [address] [place], [address] 07/11/2023 22:09:52 07/11/19 24 07/11/2023 COMPL ETE BLOOD COUNT W/DIF F platelet count 166 10_3/ uL 130-40 0 normal Not Available [address] [place], [address] 07/11/2023 22:09:52 07/11/19 24 07/11/2023 COMPL ETE BLOOD COUNT W/DIF F MPV 13.0 fL 8.0-11 .0 high Not Available [address] [place], [address] 07/11/2023 22:09:52 07/11/19 24 07/11/2023 COMPL ETE BLOOD COUNT W/DIF F neutrophils % 68.9 Not Available [address] [place], [address] 07/11/2023 22:09:52 07/11/19 24 07/11/2023 COMPL ETE BLOOD COUNT W/DIF F lymphocytes % 14.8 Not Available [address] [place], [address] 07/11/2023 22:09:52 07/11/19 24 07/11/2023 COMPL ETE BLOOD COUNT W/DIF F monocytes % 12.9 Not Available [address] [place], [address] 07/11/2023 22:09:52 07/11/19 24 07/11/2023 COMPL ETE BLOOD COUNT W/DIF F eosinophils % 2.2 Not Available [address] [place], [address] 07/11/2023 22:09:52 07/11/19 24 07/11/2023 COMPL ETE BLOOD COUNT W/DIF F basophils % 0.6 Not Available [address] [place], [address] 07/11/2023 22:09:52 07/11/19 24 07/11/2023 COMPL ETE BLOOD COUNT W/DIF F immature grans % 0.6 Not Available [address] [place], [address] 07/11/2023 22:09:52 07/11/19 24 07/11/2023 COMPL ETE BLOOD COUNT W/DIF F nucleated RBC 0.0 % 0.0-0. 3 normal Not Available [address] [place], [address] 07/11/2023 22:09:52 07/11/19 24 07/11/2023 COMPL ETE BLOOD COUNT W/DIF F absolute neutrophil count 3.69 10_3/ uL 1.2-6. 7 normal Not Available [address] [place], [address] 07/11/2023 22:09:52 07/11/19 24 07/11/2023 COMPL ETE BLOOD COUNT W/DIF F absolute lymphocyte count 0.79 10_3/ uL 1.2-3. 4 low Not Available [address] [place], [address] 07/11/2023 22:09:52 07/11/19 24 07/11/2023 COMPL ETE BLOOD COUNT W/DIF F absolute monocyte count 0.69 10_3/ uL 0.1-0. 8 normal Not Available [address] [place], [address] 07/11/2023 22:09:52 07/11/19 24 07/11/2023 COMPL ETE BLOOD COUNT W/DIF F absolute eosinophil count 0.12 10_3/ uL 0.0-0. 7 normal Not Available [address] [place], [address] 07/11/2023 22:09:52 07/11/19 24 07/11/2023 COMPL ETE BLOOD COUNT W/DIF F absolute basophil count 0.03 10_3/ uL 0.0-0. 2 normal Not Available [address] [place], [address] 07/11/2023 22:09:52 07/11/19 24 07/11/2023 BASIC METAB OLIC PANEL calcium 9.0 mg/dL 8.5-10 .1 normal Not Available [address] [place], [address] 07/11/2023 22:19:52 07/11/19 24 07/11/2023 BASIC METAB OLIC PANEL glucose 474 mg/dL 74-106 high Not Available Marques phan [address] [place], [address] 07/11/2023 22:19:52 07/11/19 24 07/11/2023 BASIC METAB OLIC PANEL BUN 11 mg/dL 7-18 normal Not Available Marques phan [address] [place], [address] 07/11/2023 22:19:52 07/11/19 24 07/11/2023 BASIC METAB OLIC PANEL creatinine 0.9 mg/dL 0.55-1 .02 normal Not Available [address] [place], [address] 07/11/2023 22:19:52 07/11/19 24 07/11/2023 BASIC METAB OLIC PANEL estimated GFR 86.57 mL/min /1.73m 2 The eGFR is calcu lated from a serum creat inine using the CKD-E PI 2020 equat ion. Other varia bles requi red for the equat ion are gende r and age; this equat ion does not inclu de a race coeff icien t. This equat ion has simil ar overa ll perfo rmanc e to previ ous equat ions excep t value s may diffe r, in parti cular , in patie nts with highe r value s of eGFR and young er-ag ed adult s. Not Available [address] [place], [address] 07/11/2023 22:19:52 07/11/19 24 07/11/2023 BASIC METAB OLIC PANEL sodium 137 mmol/ L 136-14 5 normal Not Available [address] [place], [address] 07/11/2023 22:19:52 07/11/19 24 07/11/2023 BASIC METAB OLIC PANEL potassium 3.2 mmol/ L 3.5-5. 1 low Not Available [address] [place], [address] 07/11/2023 22:19:52 07/11/19 24 07/11/2023 BASIC METAB OLIC PANEL chloride 102 mmol/ L 98-107 normal Not Available [address] [place], [address] 07/11/2023 22:19:52 07/11/19 24 07/11/2023 BASIC METAB OLIC PANEL CO2 21.2 mmol/ L 21.0-3 2.0 normal Not Available [address] [place], [address] 07/11/2023 22:19:52 07/11/19 24 07/11/2023 BASIC METAB OLIC PANEL anion gap 13.8 mmol/ L 3-11 high Not Available [address] [place], [address] 07/11/2023 22:19:52 07/11/19 24 07/11/2023 URINA LYSIS color Yellow yellow Not Available Marques phan [address] [place], [address] 07/11/2023 22:49:55 07/11/19 24 07/11/2023 URINA LYSIS clarity Clear clear Not Available Marques phan [address] [place], [address] 07/11/2023 22:49:55 07/11/19 24 07/11/2023 URINA LYSIS specific gravity 1.020 1.005- 1.025 normal Not Available [address] [place], [address] 07/11/2023 22:49:55 07/11/19 24 07/11/2023 URINA LYSIS pH 7.0 5-8 normal Not Available Marques phan [address] [place], [address] 07/11/2023 22:49:55 07/11/19 24 07/11/2023 URINA LYSIS leukocyte esterase Negati ve negati ve Not Available [address] [place], [address] 07/11/2023 22:49:55 07/11/19 24 07/11/2023 URINA LYSIS nitrite Negati ve negati ve Not Available [address] [place], [address] 07/11/2023 22:49:55 07/11/19 24 07/11/2023 URINA LYSIS protein Negati ve mg/dL neg-tr crystal Not Available [address] [place], [address] 07/11/2023 22:49:55 07/11/19 24 07/11/2023 URINA LYSIS glucose 500 mg/dL negati ve abnormal Not Available [address] [place], [address] 07/11/2023 22:49:55 07/11/19 24 07/11/2023 URINA LYSIS ketones Trace mg/dL negati ve abnormal Not Available [address] [place], [address] 07/11/2023 22:49:55 07/11/19 24 07/11/2023 URINA LYSIS urobilinogen 0.2 mg/dL up to 0.2 Not Available [address] [place], [address] 07/11/2023 22:49:55 07/11/19 24 07/11/2023 URINA LYSIS bilirubin Negati ve negati ve Not Available [address] [place], [address] 07/11/2023 22:49:55 07/11/19 24 07/11/2023 URINA LYSIS blood Negati ve negati ve Not Available [address] [place], [address] 07/11/2023 22:49:55 07/11/19 24 07/11/2023 VENOU S BLOOD GAS pH (venous) 7.50 7.31-7 .41 high Not Available [address] [place], [address] 07/11/2023 22:49:56 07/11/19 24 07/11/2023 VENOU S BLOOD GAS pCO2 (venous) 27 mmHg 41-51 low Not Available [address] [place], [address] 07/11/2023 22:49:56 07/11/19 24 07/11/2023 VENOU S BLOOD GAS pO2 (venous) 63 mmHg Not Available [address] [place], [address] 07/11/2023 22:49:56 07/11/19 24 07/11/2023 VENOU S BLOOD GAS TCO2 (venous) 19 mmol/ L 24-29 low Not Available [address] [place], [address] 07/11/2023 22:49:56 07/11/19 24 07/11/2023 VENOU S BLOOD GAS HCO3 (venous) 21 mmol/ L 23-28 low Not Available [address] [place], [address] 07/11/2023 22:49:56 07/11/19 24 07/11/2023 VENOU S BLOOD GAS BE (venous) -2 mmol/ L -2-3 normal Not Available [address] [place], [address] 07/11/2023 22:49:56 07/11/19 24 07/11/2023 VENOU S BLOOD GAS O2 sat (venous) 94 % Not Available Leandro bliss [address] [place], [address] 07/11/2023 22:49:56 07/11/19 24 07/11/2023 CARDI AC TROPO ACOSTA I cardiac troponin I < 50 NG/L < or =60 Not Available [address] [place], [address] 07/11/2023 23:37:56 07/12/19 24 07/12/2023 BASIC METAB OLIC PANEL calcium 8.8 mg/dL 8.5-10 .1 normal Not Available [address] [place], [address] 07/12/2023 07:15:24 07/12/19 24 07/12/2023 BASIC METAB OLIC PANEL glucose 332 mg/dL 74-106 high Not Available Marques phan [address] [place], [address] 07/12/2023 07:15:24 07/12/19 24 07/12/2023 BASIC METAB OLIC PANEL BUN 7 mg/dL 7-18 normal Not Available Marques phan [address] [place], [address] 07/12/2023 07:15:24 07/12/19 24 07/12/2023 BASIC METAB OLIC PANEL creatinine 0.8 mg/dL 0.55-1 .02 normal Not Available [address] [place], [address] 07/12/2023 07:15:24 07/12/19 24 07/12/2023 BASIC METAB OLIC PANEL estimated GFR 99.71 mL/min /1.73m 2 The eGFR is calcu lated from a serum creat inine using the CKD-E PI 2020 equat ion. Other varia bles requi red for the equat ion are gende r and age; this equat ion does not inclu de a race coeff icien t. This equat ion has simil ar overa ll perfo rmanc e to previ ous equat ions excep t value s may diffe r, in parti cular , in patie nts with highe r value s of eGFR and young er-ag ed adult s. Not Available [address] [place], [address] 07/12/2023 07:15:24 07/12/19 24 07/12/2023 BASIC METAB OLIC PANEL sodium 138 mmol/ L 136-14 5 normal Not Available [address] [place], [address] 07/12/2023 07:15:24 07/12/19 24 07/12/2023 BASIC METAB OLIC PANEL potassium 4.0 mmol/ L 3.5-5. 1 normal Not Available [address] [place], [address] 07/12/2023 07:15:24 07/12/19 24 07/12/2023 BASIC METAB OLIC PANEL chloride 103 mmol/ L 98-107 normal Not Available [address] [place], [address] 07/12/2023 07:15:24 07/12/19 24 07/12/2023 BASIC METAB OLIC PANEL CO2 23.7 mmol/ L 21.0-3 2.0 normal Not Available [address] [place], [address] 07/12/2023 07:15:24 07/12/19 24 07/12/2023 BASIC METAB OLIC PANEL anion gap 11.3 mmol/ L 3-11 high Not Available [address] [place], [address] 07/12/2023 07:15:24 07/12/19 24 07/12/2023 LAB ADD ON TEST lab add on test DONE Not Available [address] , [place], [address] 07/12/2023 13:52:03 07/12/19 24 07/12/2023 HEMOG LOBIN A1C hemoglobin A1C 10.7 % <5.7 high Refer ence Range s <5.7 Lashonda l 5.7-6 .4% Predi abete s 6.5% or great er Diagn ostic for diabe elisabeth (if confi rmed) Refer ences : 1. Ameri can Diabe elisabeth [facility] iatio n. Clas sific ation and Diagn osis of Diabe elisabeth. Diabe elisabeth [facility] 2019 May; 2(Sup pleme nt 1):S1 3-s28 . Not Available [address] , [place], [address] 07/12/2023 15:30:21 01/24/20 24 01/24/2024 gluco se, finge rstic k, blood glucose 85 mg/dL 70-100 Not Available [address], [place], [address], 01/24/2024 19:11:11 07/11/19 24 07/11/2023 vrad repor matheus jarvis Name: Greg Fall Unit #: [id number] Loc: ER Orderi ng Provid er: Accoun t #: [id number] Status : PRE ER Primar y Care Provid er: TIFFANIE COWART NP Date of Exam: 09/28 Sex: F : 1990 Age: 32 Exam(s ) PROCED URE INFORM ATION: Exam: XR Chest Exam date and time: 07/11/19 10:00 PM Age: 32 years old Clinic al indica tion: Cough and shortn ess of breath ; Patien t HX: Cough, SOB TECHNI QUE: Imagin g protoc ol: Radiol ogic exam of the chest. Views: 2 views. COMPAR FAIZA: No releva nt prior studie s availa ble. FINDIN GS: Lungs: No pulmon chauncey consol idatio n is seen. Pleura l spaces : No pleura l effusi on or pneumo thorax is demons trated . Heart/ Medias tinum: The heart appear s normal in size. Bones/ joints : The visual ized bony struct ures appear intact . IMPRES NANCY: No active diseas e is seen in the chest. Dictat ed and Jose Enrique nelson d by: Amado Hope MD. Orderi ng:Ayaka norman MD Access ion#=[id number] Kathy d By: CC: ------ ------ ------ ------ ------ ------ ------ ------ ------ ------ ------ ------ ---- Dictat ed By: Report s vrad 2199 Transc ribed By: Di Merge 2199 This is privil eged, confid ential inform ation intend ed only for the provid er named. Any use or distri bution by any person other than this provid er is strict ly prohib ited. If you receiv e this report in error, please notify us immedi ately at [phone] and return the origin al report to us at the addres s above. Thank- you. [email or web address] [facility] [address], [place], [address] 07/12/2023 10:48:21 07/12/19 24 07/12/2023 x-ray imagi luis lopez t Adrian t Name: Greg Fall Unit #: [id number] Loc: MS Jeremiah smith Provid er: Greg Skinner Accoun t #: [id number] Status : ADM THERESE Primar y Care Provid er: TIFFANIE COWART NP Date of Exam: 09/28 Sex: F Admiss ion Date: : 1990 Age: 32 Exam(s ) XR CHEST 2V PA LATERA L EXAM: XR CHEST 2V PA LATERA L CLINIC AL HISTOR Y: SOB, cough TECHNI QUE: 2D digita l imagin g was perfor med. Two views. COMPAR FAIZA: No exams were availa ble for compar faiza FINDIN GS: HEART: Normal size. Aorta: Not dilate d. PULMON CHAUNCEY VASCUL ATURE: Normal . LUNGS: Subopt imally inflat ed but clear. PLEURA L SPACE: No pleura l effusi on or pneumo thorax . BONE:U nremar kable for age. Soft tissue s: Unrema rkable . IMPRES NANCY: No acute abnorm ality. DATA REPOSI TORY: RADIAT ION DOSE DELIVE RED: Ordere d By: Greg Skinner CC: ------ ------ ------ ------ ------ ------ ------ ------ ------ ------ ------ ------ - Dictat ed By: Delfino Daly 838 Transc ribed By: Magdalena Whitaker 838 This is privil eged, confid ential inform ation intend ed only for the provid er named. Any use or distri bution by any person other than this provid er is strict ly prohib ited. If you receiv e this report in error, please notify us immedi ately at and return the origin al report to us at the addres s above. Thank- you. [facility] [address] , [place], [address] 07/12/2023 10:48:22 Result Notes None recorded. Problems Name Problem SNOMED Code Status Onset Date Resolution Date Notes Provider Name and Address Organization Details Recorded Time Mild intermit tent asthma 121143944 Active 2015 LINDA hannon [place] - [facility] 4 09:04:29 Low back pain 501422287 Completed 201507/25/2023 Problem Code: M54.5; Problem Code Type: ICD-10; KORINA WICK [address], [place], [address] , [facility] 4 16:54:45 Gastroes ophageal reflux disease without esophagi tis 094885959 Active 2015 LINDA hannon, [facility] 4 09:04:21 Otitis media 06982101 Completed 201510/13/2015 09/18/19 16 - Comments only [...] H66.90; Problem Code Type: ICD-10; Not Available [facility] 3 05:08:07 Neck pain 92205702 Completed 201504/15/2016 04/01/20 16 - Comments only - Candelario HAWKINS-Jay Jay - PX findings unsuppor tive of OM, [...] M54.2; Problem Code Type: ICD-10; Not Available [facility] 3 05:08:07 Body mass index 40+ - severely obese 199717679 Active 2018 LINDA hannon, [facility], [facility]. 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 Problem Code: Z71.89; Problem Code Type: ICD-10; Not Available [facility] 3 05:08:08 Screenin g for malignan t neoplasm of cervix Completed 202104/13/2022 Problem Code: Z12.4; Problem Code Type: ICD-10; Not Available [facility] 3 05:08:08 Cough 32143814 Completed 201706/08/2017 Problem Code: R05; Problem Code Type: ICD-10; Not Available [facility] 3 05:08:09 Uncompli cated asthma 116102493 Completed 201502/01/2023 09/18/19 16 - Comments only - Maren Gan MD - She feels that this is adequate ly treated at this time, with just the Singulai r. She has follow-u p in early October with her primary care provider . If she does not have adequate control, inhaled steroid could be added. Problem Code: J45.909; Problem Code Type: ICD-10; Not Available [facility] 3 05:08:09 Fatigue 00749869 Completed 201803/22/2021 Problem Code: R53.83; Problem Code Type: ICD-10; Not Available [facility] 3 05:08:09 Streptoc occal sore throat 47725310 Completed 202103/30/2022 Problem Code: J02.0; Problem Code Type: ICD-10; Not Available [facility] 3 05:08:09 Acute pharyngi tis 720668757 Completed 202103/30/2022 Problem Code: J02.9; Problem Code Type: ICD-10; Not Available [facility] 3 05:08:09 Diabetes mellitus screenin g Completed 201903/22/2021 Problem Code: Z13.1; Problem Code Type: ICD-10; Not Available [facility] 3 05:08:09 Adult health examinat ion Completed 201812/10/2018 Problem Code: Z00.00; Problem Code Type: ICD-10; Not Available [facility] 3 05:08:10 Acute upper respirat ory infectio n 79258086 Completed 201812/10/2018 Problem Code: J06.9; Problem Code Type: ICD-10; Not Available [facility] 3 05:08:10 Malnutri tion screenin g Completed 201903/22/2021 Problem Code: Z13.21; Problem Code Type: ICD-10; Not Available [facility] 3 05:08:10 Obesity 213841207 Completed 201512/10/2018 Problem Code: E66.9; Problem Code Type: ICD-10; Not Available [facility] 3 05:08:10 Adult health examinat ion Completed 201712/10/2018 Problem Code: Z00.00; Problem Code Type: ICD-10; Not Available [facility] 3 05:08:10 Jaw pain 924912276 Completed 201501/02/2017 Problem Code: R68.84; Problem Code Type: ICD-10; Not Available [facility] 3 05:08:10 Screenin g for disorder Completed 201903/22/2021 Problem Code: Z13.89; Problem Code Type: ICD-10; Not Available [facility] 3 05:08:10 At increase d risk of apnea 027337960 Active 2023 LINDA hannon, [facility] 4 09:03:22 Type 2 diabetes mellitus without complica tion 190920248 Active 2023 TIFFANIE COWART, IAP DISPLAYS ANALYST [address], [facility] [address] , [facility] 4 16:54:47 Neuropat hy 343055315 Active 2023 JOON CURRAN PA-C [address], [facility] [address] , [facility] 4 18:54:28 Problem Notes None recorded. Procedures Surgical History None recorded. Imaging Results Imaging Date Name Status LastModified by Organiz ation Details LastModified Time 07/11/2023 vrad report completed [address] , [facility] [address] 07/12/2023 10:48:21 07/12/2023 x-ray imaging report completed [address] , [facility] [address] 07/12/2023 10:48:22 Procedure Notes None recorded. Medical Equipment None Reported. Allergies Allergen ID Allergen Name Allergen Category Reaction Reaction Severity Criticality Documentation Date Start Date Code Code System Note Provider Name and Address Organization Details Recorded Time 88753 Canis lupus familiari s extract environme nt Not available Not available Not available 03/17/20232022 76862 4 RxNorm Aller gyNam e: 'DOGS '; Not Available [facility] 3 16:21:56 Medications Name Sig Start Date Stop [...] Arterial blood by Pulse oximetry Heart rate Systolic blood pressure Diastolic blood pressure Provider Name and Address Organization Details Last Updated DateTime 4 159 cm 38.3 kg/m2 24588.5 7 g 99 [degF] 96 % 96 % 86 /min 131 mm[Hg] 72 mm[Hg] Antonella Miranda MA [facility] 4 13:36:26 Date Recorded Body height Body mass index (BMI) Body weight Oxygen saturation Oxygen saturation in Arterial blood by Pulse oximetry Heart rate Body temperature Systolic blood pressure Diastolic blood pressure Provider Name and Address Organization Details Last Updated DateTime 4 159 cm 37.8 kg/m2 16659.2 g 97 % 97 % 90 /min 99.3 [degF] 121 mm[Hg] 64 mm[Hg] Antonella Miranda MA [facility] 4 10:24:28 Date Recorded Body height Body mass index (BMI) Body weight Body temperature Oxygen saturation Oxygen saturation in Arterial blood by Pulse oximetry Heart rate Respiratory rate Systolic blood pressure Diastolic blood pressure Provider Name and Address Organization Details Last Updated DateTime 4 159 cm 37.7 kg/m2 76990.4 g 97 [degF] 97 % 97 % 71 /min 18 /min 131 mm[Hg] 81 mm[Hg] NIURKA PENA MA [facility] 4 18:03:42 Social History Question Answer Notes LastModified by Organizat ion Details LastModified Time Tobacco Smoking Status Never Smoker Antonella Miranda MA [facility], [facility] 07/25/2023 13:35:06 What Was The Date Of Your Most Recent Tobacco Screening? 07/25/2023 [email or web address] Information not available 07/25/2023 Has Tobacco Cessation Counseling Been Provided? No [email or web address] Information not available 07/25/2023 Do You Or Have You Ever Used Any Other Forms Of Tobacco Or Nicotine? No [email or web address] Information not available 07/25/2023 Sex: Female Functional [...] Father No family history of respiratory disease Not available 2022 03:57:37 Mother Family history of disorder of lung Not available 2022 03:57:37 Notes:*Problem: mom - [...] Recorded Time MMR 06/22/1994 completed Not Available [facility] 04:53:05 MMR 09/21/1990 completed Not Available [facility] 04:53:05 Td (adult), 2 Lf tetanus toxoid, preservative free, adsorbed 01/02/2017 completed Not Available [facility] 03/17/2023 04:53:06 meningococcal ACWY, unspecified formulation 02/09/2007 completed Not Available [facility] 03/17/2023 04:53:06 Tdap 02/09/2007 completed Not Available [facility] 04:53:06 HPV, unspecified formulation 05/22/2008 completed Not Available [facility] 03/17/2023 04:53:06 HPV, unspecified formulation 03/01/2007 completed Not Available [facility] 03/17/2023 04:53:06 HPV, unspecified formulation 04/26/2007 completed Not Available [facility] 03/17/2023 04:53:06 COVID-19, mRNA, LNP-S, PF, 30 mcg/0.3 mL dose 07/28/2021 completed Not Available [facility] 03/17/2023 04:53:07 COVID-19, mRNA, LNP-S, PF, 30 mcg/0.3 mL dose 01/04/2021 completed Not Available [facility] 03/17/2023 04:53:07 COVID-19, mRNA, LNP-S, PF, 30 mcg/0.3 mL dose 01/25/2021 completed Not Available [facility] 03/17/2023 04:53:07 Hep B, unspecified formulation 06/17/1997 completed Not Available [facility] 03/17/2023 04:53:08 Hep B, unspecified formulation 06/22/1994 completed Not Available [facility] 03/17/2023 04:53:08 Hep B, unspecified formulation 02/27/1996 completed Not Available [facility] 03/17/2023 04:53:08 polio, unspecified formulation 05/22/1990 completed Not Available [facility] 03/17/2023 04:53:08 polio, unspecified formulation 07/09/1991 completed Not Available [facility] 03/17/2023 04:53:08 polio, unspecified formulation 08/09/1990 completed Not Available [facility] 03/17/2023 04:53:08 polio, unspecified formulation 10/17/1997 completed Not Available [facility] 03/17/2023 04:53:09 polio, unspecified formulation 1989 completed Not Available [facility] 03/17/2023 04:53:09 Past Encounters Encounter ID Performer Location Encounter Start Date Encounter Closed Date Diagnosis/Indication Diagnosis SNOMED-CT Code Diagnosis ICD10 Code [id number] KORINA WICK [place] [address] [place] [address] 07/25/2023 13:07:10 07/25/2023 15:06:00 Type 2 diabetes mellitus without complication 583693661 E11.9 Mild inter mittent asthma 533331352 J45.20 At [facility] ed risk of apnea 196263537 Z91.89 [id number] TIFFANIE COWART, IAP DISPLAYS ANALYST [facility] [address] [place] [address] 08/22/2023 09:47:38 08/22/2023 10:42:30 Type 2 diabetes mellitus without complication 639693045 E11.9 Mild inter mittent asthma 610126888 J45.20 At [facility] ed risk of apnea 653734007 Z91.[id number] [facility] [address] [place] [address] 08/29/2023 11:10:14 10/25/2023 15:08:11 Gastroesophageal reflux disease without esophagitis 498339742 K21.9 Type 2 gary betes mellitus without complication 529239481 E11.[id number] [facility] [address] [place] [address] 11/28/2023 10:19:21 11/28/2023 13:06:30 Gastroesophageal reflux disease without esophagitis 160292028 K21.9 Type 2 gary betes mellitus without complication 234373817 E11.9 [id number] JOON CURRAN PA-C [address],[facility] [address] [place] [address] 01/24/2024 17:32:29 01/24/2024 19:17:56 Neuropathy 542629449 G62.9 Health Concerns Section Related Observation LastModified by Organization Detai ls LastModified Time None Recorded Concern Status LastModified by Organization Details LastModified Time None Recorded Advance Directives Directive None Recorded Payers Encounter Date Sequence Insurance Name Policy Number Policy Segundo Covered Member ID Segundo Member ID Guarantor Name 07/25/2023 1 [place] Corie Fall [id number] Corei Fall 08/22/2023 1 [place] Corie Fall [id number] Corie Fall 08/29/2023 1 [place] Corie Fall [id number] Coriereema Fall 11/28/2023 1 [place] Corie Fall [id number] Corie Fall 01/24/2024 1 [place] Corie Fall [id number] Corie Fall Notes Date Note Type Note Provider Name and Address Organization Details Recorded Time 07/25/2023 text/html HPI Notes: Nanette biswas presents with her spouse to [facility] for hospital follow-up. Recent hospitalization for asthma, hyperglycemia, and new diagnosis of type 2 diabetes. A1c of 10.7 during hospitalization. participate in nutrition follow-up during hospitalization. She has started metformin. She was treated with insulin during hospitalization. Presents with a CGM today. Asthma improved after receiving steroids. 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 KORINA WICK [address], [place], [address], [facility] 07/25/2023 17:01:24 08/22/2023 text/html HPI Notes: Nanette biswas presents to [facility] for 1 month diabetes follow-up. New diagnosis during hospitalization (A1c 10.7). Has started on metformin, tolerating well. Has a CGM in place. Scheduled with our diabetes team for follow-up later this month. Denies any specific questions or concerns for today. Overall feels well. 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 [address], [place], [address], [facility] 08/22/2023 10:56:41 01/24/2024 text/html HPI Notes: Nanette biswas is a 33-year-old female who presents with numbness sensation beginning in her left foot about 3 weeks ago and has spread up the left leg over about a week's time and then to the right foot and up the right leg. She reports that she was diagnosed with diabetes and Erica and is concerned this could be complication [...] abdomen JOON CURRAN PA-C [address], [place], [address], [facility], [facility]. 01/24/2024 20:18:45 OBGyn Episode No OBEpisode recorded.
--- OUTSIDE RECORDS SUMMARY | 2024-01-24 23:03 | XMS_ITS | Continuity of Care Document ---
Author Organization [facility] [place] [address] Care Team Providers Care Steel Finisher Name Role Phone TIFFANIE COWART Primary Care Provider [phone] Assessment Encounter Date Assessment Date Assessment LastModified by Organization Details LastModified Time 11/28/2023 11/28/2023 CC: Diabetes Management Risk Factors: Exercise Counseling: Y Dietary Counseling: Y Nutrition DATE OF SERVICE: 11/28/23 SUBJECTIVE: 33 year old with type 2 diabetes newly diagnosed 07/25/23 during hospitalization A1c 10.7%. Also Obesity BMI 37.8, and GERD. Referred by pcp Tiffanie Cowart. Here today for: follow up MNT and diabetes education. 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 used to do urdu toast once per week. sometimes bagel [employer]ot whole wheat bagel. tried a cereal whole wheat but did not like it. whole wheat waffles. L - struggles with lunches usually a sandwich. Take out from stores [employer] and [employer] or [employer] sandwich or man cave at [employer]. More [...] veggies in a homemade dip goes to [employer] van go fruits: cherries, strawberries, watermelon in portions, talked about pyrex dishes. recommended mobley pasta added veggies pesto, red sauce pomi vegetables. OBJECTIVE : Relevant labs: HbA1C : 10.7% 07/12/2023 CGM report 90 day Glucose Management Indicator 6.3% Current Patient Reported Diabetes Medications: 2000mg metformin Glucose Monitoring: CGM Type : Kydaemos eric 2. hospital ordered FSL2 now unable to get FSL3 due to cost. Should have gotten FSL3. $75/month for sensors. CGM Training: July 2023 discussed success over time, congratulated her on success, consider to save money wear cgm intermittently and possibly spend money on something for physical activity. The Kitchen Hotline CGM Report PROGRESS 07/25/23-->08/29/23- ->11/28/23 Average Glucose: [...] Problem Solving 7. Reducing Risks https://www.diabet eseducator.org/prince nmi-qlpr-xayvfnwh/ jiec2-kluu-lmjv-be haviors Oral Care: cleanings every 6 months. Eye Care: went last year goes every other year, reviewed importance of yearly eye care. Foot Care: reviewed Physical Activity: has treadmill: tries to get on at least every other day. sometimes bikes to work E bike. Plans to use it more. Encouraged getting 150min/week 30 min most days. Work schedule: [employer] security. 1 day off per week because [...] goal. Discussed considering free options: community classes, SunnyBump videos, Worksteady.io yina or something like that for walkingat a faster pace certain times at work, yoga at home, [employer] in [facility] exercise program for people with chronic conditions, [...] Wonderful job. Signature: Kortney Tolbert RDN, LD, [facility] VISIT STATISTICS: Total Visit Minutes-60 [email or web address] Not available 11/28/2023 11:59:59 Plan of Treatment Reminders Order Date Submit Date Provider Last Modified By Organization Details Last Modified Time Details Appointments Acute 10 2023 05:31P M Not available Not available Not available Annual Wellness Exam 40 2023 10:00A M Not available Not available Not available Lab None recorded. Referral None recorded. Procedures None recorded. Surgeries None recorded. Imaging None recorded. Medication Orders None recorded. Patient Targets Encounter Date Encounter Id Patient [...] portions - consider making fruit sauce for urdu toast [email or web address] Not available 11/28/2023 10:38:37 Patient Instructions Encounter Date Encounter Id Patient Instructions Last Modified By Organization Details Last Modified Time 11/28/2023 [id number] [email or web address] Keep up the great work with the CGM success. You are doing a wonderful job with Time in Range (TIR). You are protecting your pancreas and preventing complications with all of the work you are doing related to improving overall health. Keep trying to get the physical activity in and build the lean body mass as you loose weight. Consider the Worksteady.io yina to help you walk a little [...] support agent. The queue is open 28/11: https://www.dexcom. com/en-us/contact Greg falconkasie [employer] -I will contact Sharriot if I have a question/malfunctio n/error message/if sensor does not last the full 14 days. - I will keep the sensor and applicator until the end of my 14-day wear. [phone] Available 7 days a week 8 AM to 8 PM Eastern Time; excluding holidays. OR - Submit a sensor support request if your sensor has fallen off or if you have received a sensor error message. [email or web address]/us-en/sup port/contact-us.htm l.*}} -Your pharmacy or DME company will not replace sensors, only the pillow cleaner will. - I will use the data from the CGM to work with my diabetes care team to adjust diet, lifestyle, and diabetes medications to continue achieving 70% time in range (TIR). - Our Diabetes Care Team is here to support you as well, ask your Nurse Resident Services Director for more information or call/text Kortney Tolbert during normal business hours M-Th 9-5pm [phone]. [email or web address] Not available 11/28/2023 12:00:36 Reason for Referral None Reported. Problems Name Problem SNOMED Code Status Onset Date Resolution Date Notes Provider Name and Address Organization Details Recorded Time Mild intermit tent asthma 445591431 Active 2015 LINDA hannon [facility], [facility]. 4 09:04:29 Low back pain 804641172 Completed 201507/25/2023 Problem Code: M54.5; Problem Code Type: ICD-10; TIFFANIE COWART, TRAFFIC CONTROL OFFICER [address], [place], [address] , [facility]. 4 16:54:45 Gastroes ophageal reflux disease without esophagi tis 904021821 Active 2015 LINDA hannon [facility], [facility]. 4 09:04:21 Otitis media 38322928 Completed 201510/13/2015 09/18/19 16 - Comments only - Marne Gan MD - right tympanic membrane is [...] H66.90; Problem Code Type: ICD-10; Not Available [facility] 3 05:08:07 Neck pain 82421077 Completed 201504/15/2016 04/01/20 16 - Comments only - Candelario Wong PA-C - PX findings unsuppor tive of OM, [...] M54.2; Problem Code Type: ICD-10; Not Available [facility] 3 05:08:07 Body mass index 40+ - severely obese 247018694 Active 2018 LINDA SLOAN [facility] 4 09:03:44 Eczema 56628405 Completed 201807/25/[address], [place], [address] , [facility] 4 16:54:50 Disorder of soft tissue 09852264 Completed 202007/25/[address], [place], [address] , [facility] 4 16:54:57 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 Problem Code: Z71.89; Problem Code Type: ICD-10; Not Available [facility] 3 05:08:08 Screenin g for malignan t neoplasm of cervix Completed 202104/13/2022 Problem Code: Z12.4; Problem Code Type: ICD-10; Not Available [facility] 3 05:08:08 Cough 57908612 Completed 201706/08/2017 Problem Code: R05; Problem Code Type: ICD-10; Not Available [facility] 3 05:08:09 Uncompli cated asthma 666665024 Completed 201502/01/2023 09/18/19 16 - Comments only - Maren Gan MD - She feels that this is adequate ly treated at this time, with just the Singulapedro r. She has follow-u p in early October with her primary care provider . If she does not have adequate control, inhaled steroid could be added. Problem Code: J45.909; Problem Code Type: ICD-10; Not Available [facility] 3 05:08:09 Fatigue 17717976 Completed 201803/22/2021 Problem Code: R53.83; Problem Code Type: ICD-10; Not Available [facility] 3 05:08:09 Streptoc occal sore throat 50209742 Completed 202103/30/2022 Problem Code: J02.0; Problem Code Type: ICD-10; Not Available [facility] 3 05:08:09 Acute pharyngi tis 550896207 Completed 202103/30/2022 Problem Code: J02.9; Problem Code Type: ICD-10; Not Available [facility] 3 05:08:09 Diabetes mellitus screenin g Completed 201903/22/2021 Problem Code: Z13.1; Problem Code Type: ICD-10; Not Available [facility] 3 05:08:09 Adult health examinat ion Completed 201812/10/2018 Problem Code: Z00.00; Problem Code Type: ICD-10; Not Available [facility] 3 05:08:10 Acute upper respirat ory infectio n 61525953 Completed 201812/10/2018 Problem Code: J06.9; Problem Code Type: ICD-10; Not Available [facility] 3 05:08:10 Malnutri tion screenin g Completed 201903/22/2021 Problem Code: Z13.21; Problem Code Type: ICD-10; Not Available [facility] 3 05:08:10 Obesity 085098011 Completed 201512/10/2018 Problem Code: E66.9; Problem Code Type: ICD-10; Not Available [facility] 3 05:08:10 Adult health examinat ion Completed 201712/10/2018 Problem Code: Z00.00; Problem Code Type: ICD-10; Not Available [facility] 3 05:08:10 Jaw pain 245175113 Completed 201501/02/2017 Problem Code: R68.84; Problem Code Type: ICD-10; Not Available [facility] 3 05:08:10 Screenin g for disorder Completed 201903/22/2021 Problem Code: Z13.89; Problem Code Type: ICD-10; Not Available [facility] 3 05:08:10 At increase d risk of apnea 159368371 Active 2023 LINDA hannon [facility]. 4 09:03:22 Type 2 diabetes mellitus without complica tion 598753563 Active [address], [place], [address] , [facility] 4 16:54:47 Neuropat hy 408874408 Active 2023 JOON CURRAN PA-C [address], [place], [address] , [facility] 4 18:54:28 Problem Notes None recorded. Medical Equipment None Reported. Allergies Allergen ID Allergen Name Allergen Category Reaction Reaction Severity Criticality Documentation Date Start Date Code Code System Note Provider Name and Address Organization Details Recorded Time 23965 Canis lupus familiari s extract environme nt Not available Not available Not available 03/17/20232022 78750 4 RxNorm Aller gyNam e: 'DOGS '; Not Available [facility] 3 16:21:56 Medications Name Sig Start Date [...] Available Not Available No t Available Vitals None Recorded Social History Question Answer Notes LastModified by Organizat ion Details LastModified Time Tobacco Smoking Status Never Smoker Antonella Miranda MA [facility], [place] - [facility]. 07/25/2023 13:35:06 What Was The Date Of Your Most Recent Tobacco Screening? 07/25/2023 [email or web address] Information not available 07/25/2023 Has Tobacco Cessation Counseling Been Provided? No [email or web address] Information not available 07/25/2023 Do You Or Have You Ever Used Any Other Forms Of Tobacco Or Nicotine? No [email or web address] Information not available 07/25/2023 Sex: Female Functional [...] Recorded Time MMR 06/22/1994 completed Not Available [facility] 04:53:05 MMR 09/21/1990 completed Not Available [facility] 04:53:05 Td (adult), 2 Lf tetanus toxoid, preservative free, adsorbed 01/02/2017 completed [facility] 03/17/2023 04:53:06 meningococcal ACWY, unspecified formulation 02/09/2007 completed Not [facility] 03/17/2023 04:53:06 Tdap 02/09/2007 completed Not Available [facility] 04:53:06 HPV, unspecified formulation 05/22/2008 completed Not Available [facility] 03/17/2023 04:53:06 HPV, unspecified formulation 03/01/2007 completed [facility] 03/17/2023 04:53:06 HPV, unspecified formulation 04/26/2007 completed Not Available [facility] 03/17/2023 04:53:06 COVID-19, mRNA, LNP-S, PF, 30 mcg/0.3 mL dose 07/28/2021 completed Not Available [facility] 03/17/2023 04:53:07 COVID-19, mRNA, LNP-S, PF, 30 mcg/0.3 mL dose 01/04/2021 completed Not Available [facility] 03/17/2023 04:53:07 COVID-19, mRNA, LNP-S, PF, 30 mcg/0.3 mL dose 01/25/2021 completed Not Available [facility] 03/17/2023 04:53:07 Hep B, unspecified formulation 06/17/1997 completed Not Available [facility] 03/17/2023 04:53:08 Hep B, unspecified formulation 06/22/1994 completed Not Available [facility] 03/17/2023 04:53:08 Hep B, unspecified formulation 02/27/1996 completed Not Available [facility] 03/17/2023 04:53:08 polio, unspecified formulation 05/22/1990 completed Not Available [facility] 03/17/2023 04:53:08 polio, unspecified formulation 07/09/1991 completed Not Available [facility] 03/17/2023 04:53:08 polio, unspecified formulation 08/09/1990 completed Not Available [facility] 03/17/2023 04:53:08 polio, unspecified formulation 10/17/1997 completed Not Available [facility] 03/17/2023 04:53:09 polio, unspecified formulation 1989 completed Not Available [facility] 03/17/2023 04:53:09 Past Encounters Encounter ID Performer Location Encounter Start Date Encounter Closed Date Diagnosis/Indication Diagnosis SNOMED-CT Code Diagnosis ICD10 Code [id number] [address] [place] [address] [place] [address] 11/28/2023 10:19:21 11/28/2023 13:06:30 Gastroesophageal reflux disease without esophagitis 375827747 K21.9 Type 2 gary betes mellitus without complication 471679968 E11.9 Health Concerns Section Related Observation LastModified by Organization Detai ls LastModified Time None Recorded Concern Status LastModified by Organization Details LastModified Time None Recorded Payers Encounter Date Sequence Insurance Name Policy Number Policy Segundo Covered Member ID Segundo Member ID Guarantor Name 11/28/2023 1 [id number] ([place] PROVID[employer] ONLY PPO) Corie Fall [id number] Corie Fall OBGyn Episode No OBEpisode recorded.
== END 2024-01-24 23:02 | disposition home or self-care (01) ==
LOC: LBN 23:01
PROVIDERS: PCP Nurse Practitioner Family; Visit Provider Physician Assistant Medical
DX: G62.9 Polyneuropathy, unspecified (principal)
CPT/HCPCS: 80048

== ENCOUNTER 2024-02-02 02:27 | Outpatient (CLI) | payer OTHER, SELFPAY ==
[2024-02-02 17:04] LABS: HCT 42.9 % (36.0-46.0); MCH 28.6 pg (27.0-33.0); MCHC 32.6 % (32.0-36.0); MCV 88 fL (80-95); Platelet Count 264 10^3/uL (130-400); RBC 4.89 10^6/uL (3.93-5.22); RDW 13.1 % (11.7-14.6); RDW-SD 42.1 fL
[2024-02-02 17:26] LABS: Hemoglobin A1C 6.1 % (<5.7)
[2024-02-02 17:27] LABS: Magnesium 1.6 mg/dL (1.8-2.4); Vitamin B12 833 pg/mL (193-986)
== END 2024-02-02 02:28 | disposition home or self-care (01) ==
PROVIDERS: PCP Nurse Practitioner Family; Visit Provider Nurse Practitioner Family
DX: G62.9 Polyneuropathy, unspecified (principal); E11.9 Type 2 diabetes mellitus without complications
CPT/HCPCS: 36415; 85027; 82607; 83036; 83735

== ENCOUNTER 2024-10-08 12:28 | Outpatient (REF) | payer OTHER, SELFPAY ==
[2024-10-08 13:41] LABS: COMMENT (LAB VIEW ONLY) 142.44 mg/dL; Microalb ug/mg Crea 16.8 ug/mg Cr
== END 2024-10-08 12:29 | disposition home or self-care (01) ==
LOC: NCHCN 12:28
PROVIDERS: PCP Nurse Practitioner Family; Visit Provider Nurse Practitioner Family
DX: E11.9 Type 2 diabetes mellitus without complications (principal)
CPT/HCPCS: 82043; 82570

== ENCOUNTER 2025-04-09 14:57 | Outpatient (REF) | payer BC, SELFPAY ==
[2025-04-09 17:21] LABS: Hemoglobin A1C 6.2 % (<5.7)
[2025-04-09 17:25] LABS: ALT 26 U/L (10-49); AST 21 U/L (<34); Albumin 4.2 g/dL (3.2-5.0); Alkaline Phosphatase 52 U/L (46-116); Anion Gap 11.9 mmol/L (3-11); BUN 15 mg/dL (9-23); Bilirubin, Total 0.40 mg/dL (0.2-1.2); CO2 24.1 mmol/L (20.0-31.0); Calcium 9.0 mg/dL (8.3-10.6); Chloride 107 mmol/L (98-107); Cholesterol 127 mg/dL (<200); Glucose 90 mg/dL (74-106); HDL Cholesterol 46 mg/dL (>40); Potassium 3.9 mmol/L (3.5-5.1); Sodium 143 mmol/L (136-145); Total Protein 6.8 g/dL (5.7-8.2)
== END 2025-04-09 14:58 | disposition home or self-care (01) ==
LOC: NCHCN 14:57
PROVIDERS: PCP Nurse Practitioner Family; Visit Provider Nurse Practitioner Family
DX: Z00.00 Encounter for general adult medical examination without abnormal findings (principal)
CPT/HCPCS: 80053; 80061; 83036